=== PATIENT | male | born 1975 | race Caucasian/White ===

== ENCOUNTER → 2020-07-17 08:57 | Outpatient (CLI) | payer OTHER, SELFPAY ==
[2020-07-17 09:42] LABS: Absolute Lymphocyte Count 1.14 X10^3/uL (0.83-4.51); Absolute Neutrophil Count 2.6 X10^3/uL (2.0-7.7); Basophil# 0.03 X10^3/uL; Basophil% 0.7 % (0-1); Eosinophil# 0.06 X10^3/uL; Eosinophils% 1.4 % (0-5); Hemoglobin 16.2 g/dL (13.0-16.5); Lymphocyte # 1.14 X10^3/ul (4.0); Lymphocyte % 27.2 % (19-41); Mean Corp Hgb Conc 33.1 g/dL (32-36); Mean Corpuscular Hgb 28.3 pg (27.0-32.0); Mean Corpuscular Volume 85.5 fL (80-94); Monocyte# 0.39 X10^3/uL; Monocyte% 9.3 % (0-10); NRBC Flagged by Analyzer 0 % (0-5); Neutrophil # 2.56 X10^3/uL (2.7-7.7); Neutrophil % 61.2 % (47-70); Platelet Count 176 K/mm3 (150-450); RBC Distribution Width CV 13.1 % (11.6-14.6); RBC Distribution Width SD 40.4 fl (35.1-43.9); Red Blood Count 5.73 M/mm3 (4.6-6.2); White Blood Count 4.2 K/mm3 (4.4-11.0)
[2020-07-17 10:28] LABS: ALB/GLOB Ratio 1.1 RATIO (0.9-2.4); AST(SGOT) 17 U/L (15-37); Alanine Aminotransfer ALT/SGPT 33 U/L (16-61); Albumin, Serum 3.8 g/dL (3.2-5.0); Alkaline Phosphatase 64 U/L (45-117); Anion Gap 6 (5-15); BUN 19 mg/dL (7-18); BUN/Creat Ratio 20.3 RATIO (10-20); Calcium,Total 8.6 mg/dL (8.5-10.1); Chloride 107 mmol/L (98-107); Cholesterol 289 mg/dL (200); Creatinine, Serum 0.93 mg/dL (0.70-1.30); EST Glomerular Filtration Rate 93 mL/min (>60); Est Glom Filt Rate - Afr Amer 112 mL/min (>60); Globulin 3.4 g/dL (2.2-4.2); Glucose 90 mg/dL (74-106); High Density Lipoprotein 101 mg/dL; Potassium 3.7 mmol/L (3.5-5.1); Protein, Total 7.2 g/dL (6.4-8.2); Sodium Level 138 mmol/L (136-145); Thyroid Stim Hormone (TSH) 2.04 uIU/mL (0.358-3.74); Triglycerides 72 mg/dL; Very Low Density Lipoprotein 14 mg/dL (5-40)
== END ==
PROVIDERS: PCP Family Medicine; Referring Provider Family Medicine; Visit Provider Family Medicine
DX: Z00.8 Encounter for other general examination (principal)
CPT/HCPCS: 36415; 80053; 80061; 84443; 85025

== ENCOUNTER → 2024-07-04 | Outpatient (CLI) | payer BC, SELFPAY ==
--- NOTE | 2024-07-04 11:38 | US_ITS ---
STUDY: SUPERFICIAL ULTRASOUND - LEFT OCCIPITAL REGION REASON FOR EXAM: Male, 48 years old. soft tissue left occipital scalp TECHNIQUE: A superficial ultrasound was performed with real-time and static odell-scale imaging. COMPARISON: None. FINDINGS: 18 grayscale and color images of the scalp overlying the left occipital region and left neck junction were acquired. A tubular appearing focus is seen in the deep scalp subcutaneous tissues measuring 9 x 7 mm. This is likely a scalp vessel or lymphatic channel. No definite flow is seen in this tubular opacity. No discrete mass or cyst or fluid collection is seen. This can be further assessed by physical exam or dermatologic assessment but there are no specifics radiographically gone the provided study. If greater detailed imaging is required a CTA or MRI contrast can be performed. US/Head/Neck Soft Tissue IMPRESSION: 1. A tubular appearing focus is seen in the deep scalp subcutaneous tissues measuring 9 x 7 mm. This is likely a scalp vessel or lymphatic channel. Electronically Signed: Dominik Irby MD at 14:32 EST ,
== END | disposition home or self-care (01) ==
LOC: US 11:36
PROVIDERS: PCP Family Medicine; Referring Provider Surgery Plastic and Reconstructive Surgery; Visit Provider Surgery Plastic and Reconstructive Surgery
DX: R22.0 Localized swelling, mass and lump, head (principal)
CPT/HCPCS: 76536

== ENCOUNTER 2024-07-10 14:16 | Emergency (ER) | payer BC, SELFPAY ==
[2024-07-10 14:17] VITALS: BP 116/74; PULSE 70; RESP 20; TEMP 36.4; O2SAT 97; BMI 25.6
--- NOTE | 2024-07-10 15:23 | EX.ED.UPPERE ---
HPI <Dr. Malika Garcia DO - Last Filed: 07/21/24 14:35> History of Present Illness Chief Complaint: Laceration Informant: patient Narrative Narrative: Patient is a 48-year-old male [id number] not on any blood thinners presenting with injury to his left hand. Patient states he pulled on a ribbon of steel which was very sharp and it sliced his right third and fourth fingers. He does have some tingling at the fourth finger. It was bleeding. He thinks he saw the bone on his fourth finger. Still able to move his fingers. No other injuries reported. Tetanus Immunization: Unknown [facility] <Dr. Malika Garcia DO - Last Filed: 07/21/24 14:35> [facility] Medical History Lipoma Occipital headache Scalp mass Home Medications ?Medication ?Instructions ?Recorded ?Last Taken ?Type cephalexin 500 mg capsule 500 mg PO Q8H 5 days #15 caps 07/10/24 Unknown Rx Allergy/AdvReac Type Severity Reaction Status Date / Time No Known Drug Allergies Allergy Unknown Other Verified 06/17/24 13:57 Family History Other Diabetes Heart disease Myocardial infarction Surgical History No history of previous surgery Social History household members: spouse Smoking Status: Never smoker alcohol intake: never substance use type: does not use ROS <Dr. Malika Garcia DO - Last Filed: 07/21/24 14:35> ROS ED Constitutional Constitutional ED: Denies chills or fever(s) Musculoskeletal Musculoskeletal: Reports other Details: right hand pain Integumentary Reports other Details: laceration to right 4th and 3rd fingers Hematologic/Lymphatic Hematologic/Lymphatic: Denies easy bleeding or easy bruising EXAM <Dr. Malika Garcia DO - Last Filed: 07/21/24 14:35> Physical Exam Const Vital Signs: 07/10/24 14:17 Temperature 97.5 F L Temperature Source Temporal Pulse Rate 70 Respiratory Rate 20 H Blood Pressure 116/74 Blood Pressure Mean 88 Pulse Ox 97 Oxygen Delivery Method Room Air Positive well nourished and well developed General Appearance ED: well developed and NAD HEENT Reports moist mucous membranes Neck supple Resp normal respiratory effort Cardio regular rate and regular rhythm Cardio Narrative: 2+ radial pulses Extremity Extremity Narrative: Right wrist. Full-thickness laceration over the palmar aspect of the third and fourth right fingers at the level of the DIP/middle phalanges. No obvious tendons exposure. Preserved extension and flexion of all of the digits. No bony deformity appreciated. Neuro oriented x3, moves all extremities and no focal motor deficits Sensorium / Orientation: alert Psych mental status grossly normal Skin Skin Narrative: Of the third right finger there is a full-thickness linear 1.5 cm laceration at the level of the middle phalanges. On the right fourth finger there is 2 cm full-thickness linear laceration at the level of the middle phalanges [facility] <Dr. Malika Garcia DO - Last Filed: 07/21/24 14:35> [facility] Narrative Medical decision making narrative: Patient presents the emergency room with laceration to his right fourth and third fingers. X-ray does not show any acute foreign body or bony abnormalities. This reviewed by myself as well as radiology. Laceration repair performed by PA. Please see procedure note. Patient's does not appear to have any tendon involvement. Is given referral for hand/plastics for wound check and given return precautions. Patient will be placed on prophylactic dose of Keflex to help prevent any deep infection from the injury. Given return precautions discharged home in stable improved condition. Radiography Diagnostic Testing: Diagnostic Data Hand X-Ray 07/10/24 15:30 IMPRESSION: No acute osseous abnormalities are demonstrated. Reading Location: [facility] Procedures <ANUJA Olguin - Last Filed: 07/10/24 16:46> Lacerations right 3rd finger: Length: 0.59 in Depth: Sub Q Shape: Linear Prep: Sterile Conditions Laceration repair: Irrigated, Lidocaine, Local and Wound explored Irrigated (ml): 100 Number of Sutures/[place]: 5 Suture Information: Ethilon and 4-0 right 4th finger: Length: 0.79 in Depth: Sub Q Shape: Linear Prep: Sterile Conditions Laceration repair: Irrigated, Lidocaine, Local and Wound explored Irrigated (ml): 100 Number of Sutures/[place]ores: 6 Suture Information: Ethilon and 4-0 Comment: Right third finger has 1.5 cm linear laceration on the volar middle phalanx. Right fourth finger has 2 cm linear laceration at the volar middle phalanx. No visible tendon or bone. Discharge Plan Triage Chief Complaint: Laceration ED Provider: Malika Garcia Dx/Rx/DC Orders Clinical Impression: Laceration of finger, Need for Tdap vaccination Instructions: ED Laceration, Hand: All Closures Prescriptions: New cephalexin 500 mg capsule 500 mg PO Q8H 5 Days Qty: 15 0RF Primary Care Provider: Moises Ramos Referrals: Moises Ramos MD [Primary Care Provider] - Gino Thomas MD [Med Staff - Active Staff] - Activity Restrictions/Additional Instructions: Sutures should be removed in approximately 10 days. I do recommend follow-up with hand/plastic surgery for wound check this week and to ensure it is healing appropriately as well as that the function of your fingers is doing well. Take antibiotics to help prevent any secondary infection. Alternate ibuprofen and Tylenol as needed for pain. Print Language: Kiswahili Disposition Disposition: Home, Self Care Discharge Date/Time: 07/10/24 17:14
[2024-07-10] MEDS: Diphth,Pertuss(Acell),Tet Vac 0.5 ML Vial IM (15:28)
[2024-07-10] MEDS: Lidocaine 1% (20 ml mdv) 20 ML Vial INFILT (15:28)
--- NOTE | 2024-07-10 15:30 | RAD_ITS ---
PROCEDURE: HAND MIN 3 VIEWS REASON FOR EXAM: Laceration. TECHNIQUE: 3 view(s) of the right hand COMPARISON: None. FINDINGS: No visible fracture. No suspicious bone lesion. Normal alignment. Soft tissues are unremarkable. Subchondral cystic lesions involving the distal 3rd and 5th metacarpals. RAD/Hand Min 3 Views IMPRESSION: No acute osseous abnormalities are demonstrated. Reading Location: [facility]
== END 2024-07-10 17:14 | disposition home or self-care (01) ==
PROVIDERS: Emergency Provider Emergency Medicine; PCP Family Medicine; Visit Provider Emergency Medicine
DX: S61.212A Laceration without foreign body of right middle finger without damage to nail, initial encounter (principal); S61.214A Laceration without foreign body of right ring finger without damage to nail, initial encounter; W26.8XXA Contact with other sharp object(s), not elsewhere classified, initial encounter; Z23 Encounter for immunization
CPT/HCPCS: 12002; 73130; 90471; 90715; 99283

== ENCOUNTER → 2024-07-15 | Outpatient (CLI) | payer BC, SELFPAY ==
[2024-07-15 10:13] LABS: Absolute Lymphocyte Count 1.32 X10^3/uL (0.83-4.51); Absolute Neutrophil Count 3.7 X10^3/uL (2.0-7.7); Basophil# 0.02 X10^3/uL; Basophil% 0.4 % (0-1); Eosinophil# 0.06 X10^3/uL; Eosinophils% 1.1 % (0-5); Hematocrit 45.6 % (40-54); Hemoglobin 14.9 g/dL (13.0-16.5); Lymphocyte # 1.32 X10^3/ul (0.83-4.51); Lymphocyte % 23.3 % (19-41); Mean Corp Hgb Conc 32.7 g/dL (32-36); Mean Corpuscular Hgb 28.2 pg (27.0-32.0); Mean Corpuscular Volume 86.4 fL (80-94); Mean Platelet Vol. 9.7 fl (6.2-12.0); Monocyte# 0.57 X10^3/uL; Monocyte% 10.1 % (0-10); NRBC Flagged by Analyzer 0 % (0-5); Neutrophil # 3.67 X10^3/uL (2.7-7.7); Neutrophil % 64.7 % (47-70); Platelet Count 248 K/mm3 (150-450); RBC Distribution Width SD 40.3 fl (35.1-43.9); Red Blood Count 5.28 M/mm3 (4.6-6.2); White Blood Count 5.7 K/mm3 (4.4-11.0)
[2024-07-15 10:37] LABS: AST(SGOT) 22 U/L (15-37); Alanine Aminotransfer ALT/SGPT 34 U/L (16-61); Albumin, Serum 3.5 g/dL (3.2-5.0); Alkaline Phosphatase 63 U/L (45-117); Anion Gap 6 (5-15); BUN 26 mg/dL (7-18); BUN/Creat Ratio 27.9 RATIO (10-20); Calcium,Total 8.6 mg/dL (8.5-10.1); Chloride 103 mmol/L (98-107); Cholesterol 261 mg/dL (200); Creatinine, Serum 0.93 mg/dL (0.70-1.30); EST Glomerular Filtration Rate 91 mL/min (>60); Est Glom Filt Rate - Afr Amer 110 mL/min (>60); Globulin 3.4 g/dL (2.2-4.2); Glucose 106 mg/dL (74-106); High Density Lipoprotein 103 mg/dL; PSA,Total - Annual Screen 0.64 ng/mL (0.00-4.00); Potassium 4.1 mmol/L (3.5-5.1); Protein, Total 6.9 g/dL (6.4-8.2); Sodium Level 137 mmol/L (136-145); Triglycerides 55 mg/dL; Very Low Density Lipoprotein 11 mg/dL (5-40)
[2024-07-18 20:24] LABS: Hemoglobin A1c 5.7 % (3.8-5.6)
== END | disposition home or self-care (01) ==
LOC: MFPLAB 08:45
PROVIDERS: PCP Family Medicine; Referring Provider Family Medicine; Visit Provider Family Medicine
DX: Z12.5 Encounter for screening for malignant neoplasm of prostate (principal); R73.09 Other abnormal glucose; E78.00 Pure hypercholesterolemia, unspecified
CPT/HCPCS: 36415; 80053; 80061; 83036; 84153; 85025; G0103

== ENCOUNTER → 2024-11-03 | Outpatient (CLI) | payer BC, SELFPAY ==
--- NOTE | 2024-11-03 14:14 | US_ITS ---
PROCEDURE: HEAD/NECK SOFT TISSUE 11/03/2024 REASON FOR EXAM: 1) POSTERIOR OCCIPITAL MASS 2) POSTERIOR NECK MASS TECHNIQUE: Ultrasound imaging of Head and Neck COMPARISON: None FINDINGS: Left occipital area of palpable lump demonstrates predominantly hypoechoic ovoid structure measuring 0.9 x 1.2 x 1.2 cm likely a lymph node. Posterior neck palpable lump demonstrates predominantly fatty tissue without defined borders. US/Head/Neck Soft Tissue IMPRESSION: Left occipital area of palpable lump demonstrates predominantly hypoechoic ovoi d structure measuring 0.9 x 1.2 x 1.2 cm likely a lymph node. Posterior neck palpable lump demonstrates predominantly fatty tissue without de fined borders. Reading Location: [id number]
== END | disposition home or self-care (01) ==
LOC: US 14:13
PROVIDERS: PCP Family Medicine; Referring Provider Surgery Plastic and Reconstructive Surgery; Visit Provider Surgery Plastic and Reconstructive Surgery
DX: R22.0 Localized swelling, mass and lump, head (principal)
CPT/HCPCS: 76536

== ENCOUNTER 2025-04-14 07:28 | Day surgery (SDC) | payer BC, SELFPAY ==
--- OUTSIDE RECORDS SUMMARY | 2025-04-14 07:40 | XMS RPT_ITS | CCD ---
Author Organization [facility] CliniSy[facility] Care Team Providers Care Machine Sorter Name Role Phone SHERIE EAST Primary Care Unavailable Richard BURNS, Dr. Sherie Yañez Primary Care Provider Richard BURNS, Dr. Sherie Yañez Attending Provider Richard BURNS, Dr. Sherie Yañez Referring Provider Martha BURNS, Dr. Christian Attending Provider Martha BURNS, Dr. Christian Referring Provider [phone] Malika Garcia Attending Unavailable Richard, Sherie E Primary Care Unavailable SchSherie perera Attending Unavailable Schpaulner, Sherie Otilio Referring Unavailable Schinner, Sherie E Primary Care Unavailable Schdilma, Sherie E Primary Care Unavailable Schdilma, Sherie Yañez Referring Unavailable Gino Thomas Attending Unavailable Richard, Sherie E Referring Unavailable Schinner, Sherie E Primary Care Unavailable Gino Thomas Attending Unavailable Marilin Coombs Attending Unavailable Schinner, Sherie E Primary Care Unavailable Schinner, Sherie E Referring Unavailable Schinner, Sherie E Primary Care Unavailable Evan Horn Attending Unavailable Richard, Sherie E Primary Care Unavailable Gnio Thomas Attending Unavailable Gino Thomas Referring Unavailable Schinyvon, Sherie E Primary Care Unavailable Gino Thomas Attending Unavailable Gino Thomas Referring Unavailable SchinnerSherie Attending Unavailable Richard, Sherie E Primary Care Unavailable Richard, Sherie E Primary Care Unavailable Gino Thomas Referring Unavailable Gino Thomas Attending Unavailable Richard, Sherie E Referring Unavailable Schpaulner, Sherie E Primary Care Unavailable Gino Thomas Attending Unavailable Medications Completed/Discontinued Medications Medication Drug Class(es) Dates Sig (Normalized) Sig (Original) cephalexin 500 mg oral capsule (2 sources) Cephalosporin Antibacterial Start: 07-10-2024 End: 11-11-2024 take 1 capsule by mouth every eight hours Cephalexin 500 mg capsule Discontinued 500 mg PO Q8H 15 5 July 10, 2024 1:00am November 11, 2024 9:09am Problems Active Problems Problem Classification Problem Date Documented Da te Episodic/Chronic Headache; including migraine (2 sources) Occipital headache; Translations: [Occipital headache] 07-18-2022 Episodic Immunizations and screening for infectious disease (2 sources) Requires diphtheria, tetanus and pertussis vaccination; Translations: [Encounter for immunization] 07-18-2024 Episodic Other and unspecified benign neoplasm (2 sources) Lipoma (clinical); Translations: [Benign lipomatous neoplasm, unspecified] 06-17-2024 Episodic Other skin disorders (4 sources) Mass of scalp; Translations: [Localized swelling, mass and lump, head] 07-18-2022 Episodic Comment on above: 2 cm soft tissue mas s left occipital scalp Other skin disorders (4 sources) Mass of body structure 06-17-2024 Episodic Comment on above: Posterior neck Unclassified (2 sources) No history of procedure 07-17-2022 Past or Other Problems Problem Classification Problem Date Documented Da te Episodic/Chronic Diabetes mellitus without complication (1 source) Impaired glucose tolerance (oral); Translations: [Impaired glucose tolerance (oral)] Onset: 11-11-2024 Episodic Open wounds of extremities (3 sources) Laceration of finger; Translations: [Laceration without foreign body of unspecified finger without damage to nail, initial encounter] Onset: 07-26-2024 07-18-2024 Episodic Other and unspecified benign neoplasm (1 source) Benign lipomatous neoplasm, unspecified; Translations: [Benign lipomatous neoplasm, unspecified] Onset: 05-12-2024 Episodic Other screening for suspected conditions (not mental disorders or infectious disease) (1 source) Encounter for screening for malignant neoplasm of prostate; Translations: [Encounter for screening for malignant neoplasm of prostate] Onset: 08-02-2024 Episodic Other skin disorders (1 source) Localized swelling, mass and lump, head; Translations: [Localized swelling, mass and lump, head] Onset: 11-08-2024 Episodic Spondylosis; intervertebral disc disorders; other back problems (2 sources) Cervicalgia; Translations: [Radiculopathy, cervical region] Onset: 05-12-2024 Episodic Results Test Name Value Interpretation Reference Range Facility Plastic Surgery Visit Report on 11-11-2024 Plastic Surgery Visit Report [facility] Plastic Reconstructive Surgery [address], [address] [place], [place] [address] OFFICE VISIT Date of Service: 11/11/24 MR#: [id number] Acct: [id number] Name: MISSAEL BARRETT Rep #: [id number] : 1975 Provider: Dr. Gino Thomas MD Age/Sex: 48/M Location: [facility] Status: Signed Intake Vital Signs 3 10/28/24 14:05 11/11/24 09:09 Height 5 ft 8 in BP 107/68 120/82 H Blood Pressure Location Lt brachial Rt brachial Position Sitting Sitting Respiration 18 18 Pulse 64 61 Pulse Source Monitor Temp 97.8 F Temp Source Temporal Pulse Oximetry (%) 97 98 Oxygen Delivery Method room air room air Intake Visit Reasons: ULTRASOUND RESULTS Chief Complaint: lipoma of back follow up ultrasound Is patient in pain?: No Allergies No Known Drug Allergies Allergy (Unknown, Verified 11/11/24 09:09) Other [facility] Medical History Lipoma Occipital headache Scalp mass Surgical History No history of previous surgery Family History Other Diabetes Heart disease Myocardial infarction Social History household members: spouse Smoking Status: Never smoker alcohol intake: never substance use type: does not use HPI ULTRASOUND RESULTS Details: Missael Barrett is a delightful 48-year-old male with past medical history of headaches who was referred to plastic surgery by orthopedic surgery for neck lipoma after he was being evaluated by their spine surgery team for possible neck pathology leading to the headaches. He reports that their x-rays were negative for any acute pathology. He reports that the masses (2 lipomas 1 on the left posterior scalp and 1 on the posterior lower neck in the midline) have been there for several years and were not present at but it been slowly growing over the years. He is not a smoker 28 Oct 2024: Patient got ultrasound but there was no read on the cervical spine mass. I discussed this with radiology and they will repeat the ultrasound for the scalp and for the cervical spine. Discussed with the patient CURRENT ENCOUNTER, 11 November 2024: Here in clinic to review ultrasound. Left posterior scalp mass consistent with a lymph node, while the posterior cervical spine ultrasound revealed fatty tissue that was not well-circumscribed. Exam Details Left posterior occipital subcutaneous mass, approximately 2 x 2 cm, likely under the galea. Mobile Posterior occipital bossing, patient reports present since childhood Posterior neck soft tissue prominence approximately 4 x 4 cm over the lower C-spine midline over a projecting spinous process. Mobile, nontender to palpation. No neck lymphadenopathy Coding Level of Care Code Off vis,est,level 3 Diagnoses Mass Scalp mass R22.0 Assessment and Plan (No Qualifiers) Assessment and Plan (1) Mass: Status: Acute Comment: Posterior neck (2) Scalp mass: Status: Chronic Comment: 2 cm soft tissue mass left occipital scalp Plan I talked to the patient about the padding identified in the ultrasound over his cervical spine spinous process. He then talked to me about weight lifting and how this area may have extra padding secondary to his use of the bar. There was no identifiable circumscribed mass in this location and removing the fatty tissue from this region may cause a wound over the spinous process. He is in agreement with no surgical intervention for this area. For the left occipital scalp mass, we talked about removal in the operating room. I talked him about how it is likely benign but that there are no guarantees and I would send the pathology. He would like to proceed with excision. I talked to the patient extensively about the risks of surgery, including bleeding, infection, damage to surrounding structures, poor scaring, surgical site dehiscence and wound formation, need for wound care, need for repeat operations, failure to obtain the desired result, DVT/PE, and the risks of anesthesia including , including stroke (from low blood pressure/ischemia or clot). The benefits and alternatives of this surgery were also discussed. All of their questions were answered, and they agreed to proceed with surgery. CPT codes for insurance prior authorization are as follows: 57237, 25792 11/12/241945 Date Gino Thomas MD Cosigner Signature: Date (if applicable) CC: Normal [facility] Head/Neck Soft Tissueon 05- Head/Neck Soft Tissue [facility] Imaging Services [address] [place], [place] [address] Head/Neck Soft Tissue MR#: [id number] Acct: [id number] Name: MISSAEL BARRETT Rep #: [id number] : 1975 M 48 From: Eddie Franklin PCP: Dr. Sherie East MD Status: [facility] Study: Head/Neck Soft Tissue Date of Exam: 11/03/24 Exam# [id number] Ordering Dr: Gino Thomas MD PROCEDURE: HEAD/NECK SOFT TISSUE 11/03/2024 REASON FOR EXAM: 1) POSTERIOR OCCIPITAL MASS 2) POSTERIOR NECK MASS TECHNIQUE: Ultrasound imaging of Head and Neck COMPARISON: None FINDINGS: Left occipital area of palpable lump demonstrates predominantly hypoechoic ovoid structure measuring 0.9 x 1.2 x 1.2 cm likely a lymph node. Posterior neck palpable lump demonstrates predominantly fatty tissue without defined borders. US/Head/Neck Soft Tissue IMPRESSION: Left occipital area of palpable lump demonstrates predominantly hypoechoic ovoid structure measuring 0.9 x 1.2 x 1.2 cm likely a lymph node. Posterior neck palpable lump demonstrates predominantly fatty tissue without defined borders. Reading Location: [facility] CC: Dr. Sherie East MD; Dr. Gino Thomas MD Student Life Dean: Signed Normal [facility] Plastic Surgery Visit Report on 10-28-2024 Plastic Surgery Visit Report [facility] Plastic Reconstructive Surgery [address], [address] [place] [address] OFFICE VISIT Date of Service: 10/28/24 MR#: [id number] Acct: [id number] Name: MISSAEL BARRETT Rep #: [id number] : 1975 Provider: Dr. Gino Thomas MD Age/Sex: 48/M Location: [facility] Status: Signed Intake Vital Signs 3 07/10/24 14:17 10/28/24 14:05 Height 5 ft 8 in 5 ft 8 in BP 107/68 Blood Pressure Location Lt brachial Position Sitting Respiration 18 Pulse 64 Temp 97.8 F Temp Source Temporal Pulse Oximetry (%) 97 Oxygen Delivery Method room air Intake Visit Reasons: f/u ultrasound Chief Complaint: lipoma of back follow up ultrasound Is patient in pain?: No Allergies No Known Drug Allergies Allergy (Unknown, Verified 10/28/24 14:06) Other Medications 3 ???Medication ???Instructions ???Recorded ???Confirmed ???Type cephalexin 500 mg capsule 500 mg PO Q8H 5 days #15 caps 08/02 Rx Nurse's Note: pt here for follow up ultrasound [facility] Medical History Lipoma Occipital headache Scalp mass Surgical History No history of previous surgery Family History Other Diabetes Heart disease Myocardial infarction Social History household members: spouse Smoking Status: Never smoker alcohol intake: never substance use type: does not use HPI f/u ultrasound Details: Missael Barrett is a delightful 48-year-old male with past medical history of headaches who was referred to plastic surgery by orthopedic surgery for neck lipoma after he was being evaluated by their spine surgery team for possible neck pathology leading to the headaches. He reports that their x-rays were negative for any acute pathology. He reports that the masses (2 lipomas 1 on the left posterior scalp and 1 on the posterior lower neck in the midline) have been there for several years and were not present at but it been slowly growing over the years. He is not a smoker Current encounter, 28 Oct 2024: Patient got ultrasound but there was no read on the cervical spine mass. I discussed this with radiology and they will repeat the ultrasound for the scalp and for the cervical spine. Discussed with the patient Exam Details Left posterior occipital subcutaneous mass, approximately 2 x 2 cm, likely under the galea. Mobile Posterior occipital bossing, patient reports present since childhood Posterior neck soft tissue mass approximately 4 x 4 cm over the lower C-spine midline. Mobile, nontender to palpation. No neck lymphadenopathy Coding Level of Care Code No Charge Diagnoses Mass Scalp mass R22.0 Assessment and Plan (No Qualifiers) Assessment and Plan (1) Mass: Status: Acute Comment: Posterior neck (2) Scalp mass: Status: Chronic Comment: 2 cm soft tissue mass left occipital scalp Plan Given that the mass is in the midline, I am obtaining ultrasound imaging. I will also get ultrasound of the left posterior scalp mass. Discussed with radiology and they are going to repeat the ultrasound of both spots free of charge. Follow-up to discuss ultrasound result. Patient will return to clinic following the ultrasound and we will discuss results Today's visit was no charge 10/29/24 09 Date Gino Thomas MD Cosigner Signature: Date (if applicable) CC: Normal [facility] C URINEon 09-19-2024 C URINE [facility] Dept of Laboratory Services [address] [place] [id number] Name: MISSAEL BARRETT : 1975 Admitting Provider: Gender Male Financial [id number] : Number: Dimple ZUÑIGA; EX02; 1 n: Admit 09/18/2024 Date: Discharge 09/18/2024 Microbiology Date: PROCEDURE: C URINE [] SOURCE: CLEAN CATCH BODY SITE: COLLECTED DATE/TIME: 09/18/2024 13:20 EDT RECEIVED DATE/TIME: 09/18/2024 14:06 EDT START DATE/TIME: 09/18/2024 14:06 EDT FREE TEXT SOURCE: ORDERING PHYSICIAN: RAJ BURNS, THUAN Blanchard FINAL REPORTS Final Report [] Verified Date/Time: 09/19/2024 07:34 EDT No growth after 24 hours. ____ L=Low, H= High, *= Abnormal, C=Critical, f=Footnote, c=Corrected, i=Interp Data Name: MISSAEL BARRETT Print 09/19/2024 07:34 EDT Date/Time: Normal [facility] Comment on above: Performed By: #### 1 [id number] #### [facility] Laboratory Services [address] [place] [address] Solid Center Winder: Sajan Karimi MD ALCOHOLon 09-18-2024 Ethanol [Mass/Vol] mg/dL Normal [facility] Comment on above: Result Comment: Note : Alcohol values performed at [facility] are performed on serum or plasma and reported in mg/dl, which is different then the state reporting units of g/dl which is performed on whole blood. Result reporting units are based on test methodology and are not interchangable. Performed By: #### 1 71147 #### [facility] Laboratory Services [address] [place] [address] Solid [facility] Winder: Sajan Karimi MD APTTon 09-18-2024 aPTT Coag (Bld) [Time] 31.3 s Normal 26.0-36.0 So [facility] Comment on above: Result Comment: APTT Interpretation: This test has not been validated to monitor heparin therapy. APTT test is used as an initial test for suspected bleeding disorder. Anti-Xa UFH test is used to monitor heparin therapy. Performed By: #### 1 88860, 044912, [id number], 830099, [id number], 526345, 582973 #### [facility] Laboratory Services [address] [place], [place] [address] Solid Center Winder: Sajan Karimi MD AUTO DIFFon 09-18-2024 Baso Count 0.03 x1000 Normal 0.00-0.20 [facility] Comment on above: Performed By: #### 1 71372, 181762, [id number], 595624, 5630655, 607430, 392190 #### [facility] Laboratory Services [address] [place], [place] [address] Solid Center Winder: Sajan Karimi MD Basos % 0.5 % Normal [facility] Comment on above: Performed By: #### 1 38893, 982715, [id number], 472514, 8610851, 948592, 935297 #### [facility] Laboratory Services [address] [place], [place] [address] Solid Center Winder: Sajan Karimi MD Eos Count 0.02 x1000 Normal 0.00-0.50 [facility] Comment on above: Performed By: #### 1 13544, 349982, [id number], 928548, 7259343, 656217, 070815 #### [facility] Laboratory Services [address] [place], [place] [address] Solid Center Winder: Sajan Karimi MD Eosinophils/100 WBC (Bld) 0.3 % Normal [facility] Comment on above: Performed By: #### 1 57610, 620207, [id number], 346777, 2716376, 855344, 627577 #### [facility] Laboratory Services [address] [place] [address] [facility] Winder: Sajan Karimi MD Lymph Count 0.90 x1000 Low 1.20-4.80 [facility] Comment on above: Performed By: #### 1 66171, 282134, [id number], 915355, 0181657, 555699, 407290 #### [facility] Laboratory Services [address] [place] [address] Solid [facility] Winder: Sajan Karimi MD Lymphocytes/100 WBC (Bld) 15.1 % Normal [facility] Comment on above: Performed By: #### 1 11711, 480670, [id number], 810505, 0686724, 823850, 796190 #### [facility] Laboratory Services [address] [place] [address] Solid [facility] Winder: Sajan Karimi MD [place] Count 0.38 x1000 Normal 0.10-1.00 [facility] Comment on above: Performed By: #### 1 21191, 228575, [id number], 362449, 0271971, 663701, 034030 #### [facility] Laboratory Services [address] [place] [address] [facility] Winder: Sajan Karimi MD Monocytes/100 WBC (Bld) 6.3 % Normal [facility] Comment on above: Performed By: #### 1 24713, 519046, [id number], 735860, 1119217, 260049, 233555 #### [facility] Laboratory Services [address] [place] [address] Solid [facility] Winder: Sajan Karimi MD Neutrophil Count (ANC) 4.64 x1000 Normal 1.40-8.80 [facility] Comment on above: Performed By: #### 1 17526, 340829, [id number], 668699, 9622940, 818462, 950849 #### [facility] Laboratory Services [address] [place] [address] [facility] Winder: Sajan Karimi MD Neutrophils/100 WBC (Bld) 77.8 % Normal [facility] Comment on above: Performed By: #### 1 64137, 949990, [id number], 943218, 4528049, 007119, 056003 #### [facility] [address] [place] [address] Solid Center Winder: Sajan Karimi MD COMPMETAon 09-18-2024 Albumin [Mass/Vol] 3.6 g/dL Normal 3.4-5.0 [facility] Comment on above: Performed By: #### 1 48090 #### [facility] Laboratory Services [address] [place] [address] Solid [facility] Winder: Sajan Karimi MD Albumin/Globulin [Mass ratio] 1.0 {ratio} Normal [facility] Comment on above: Performed By: #### 1 04979 #### [facility] Laboratory Services [address] [place] [address] [facility] Winder: Sajan Karimi MD Alk Phos 73 unit/L Normal 45-117 [facility] Comment on above: Performed By: #### 1 06429 #### [facility] Laboratory Services [address] [place] [address] [facility] Winder: Sajan Karimi MD Bilirubin [Mass/Vol] 0.60 mg/dL Normal 0.30-1.20 [facility] Comment on above: Result Comment: Use of this assay is not recommended for patients undergoing treatment with eltrombopag due to the potential for falsely elevated results. Performed By: #### 1 61780 #### [facility] Laboratory Services [address] [place] [address] [facility] Winder: Sajan Karimi MD Calcium [Mass/Vol] 9.4 mg/dL Normal 8.7-10.4 [facility] Comment on above: Performed By: #### 1 48169 #### [facility] Laboratory Services [address] [place] [address] Solid [facility] Winder: Sajan Karimi MD Chloride [Moles/Vol] 105 mmol/L Normal 98-107 [facility] Comment on above: Performed By: #### 1 96337 #### [facility] Laboratory Services [address] [place] [address] [facility] Winder: Sajan Karimi MD CO2 [Moles/Vol] 26.0 mmol/L Normal 20.0-31.0 [facility] Comment on above: Performed By: #### 1 74604 #### [facility] Laboratory Services [address] [place] [address] [facility] Winder: Sajan Karimi MD Creatinine [Mass/Vol] 1.3 mg/dL High 0.6-1.1 [facility] Comment on above: Performed By: #### 1 19068 #### [facility] Laboratory Services [address] [place] [address] [facility] Winder: Sajan Karimi MD GFR AA >60 [facility] Comment on above: Result Comment: Afri can [place]gas[place] GFR Calc Medical judgement is necessary to interpret GFR. The calculated GFR may not accurately reflect renal status in patients >70 years, women, acutely ill hospitalized patients and patients with acute renal failure or known renal disease. The MDRD GFR formula is valid only for adults greater than 18 years of age. Note: Creatinine clearance (not GFR) should be used for drug dosing. Performed By: #### 1 70279 #### [facility] Laboratory [address] [address] Solid Center Winder: Sajan Karimi MD Globulin (S) [Mass/Vol] 3.6 g/dL Normal [facility] Comment on above: Performed By: #### 1 33227 #### [facility] Laboratory Services [address] [place] [address] [facility] Winder: Sajan Karimi MD Glomerular Filtration Rate 58 mL/min/1.73m? Normal [facility] Comment on above: Result Comment: Non- GFR Calc Medical judgement is necessary to interpret GFR. The calculated GFR may not accurately reflect renal status in patients >70 years, women, acutely ill hospitalized patients and patients with acute renal failure or known renal disease. The MDRD GFR formula is valid only for adults greater than 18 years of age. Note: Creatinine clearance (not GFR) should be used for drug dosing. Performed By: #### 1 15481 #### [facility] Laboratory Services [address] [place] [address] Solid [facility] Winder: Sajan Karimi MD Glucose [Mass/Vol] 94 mg/dL Normal 74-106 [facility] Comment on above: Performed By: #### 1 38276 #### [facility] Laboratory Services [address] [place] [address] [facility] Winder: Sajan Karimi MD GOT 27 unit/L Normal 15-37 [facility] Comment on above: Performed By: #### 1 20774 #### [facility] Laboratory Services [address] [place] [address] [facility] Winder: Sajan Karimi MD GPT 25 unit/L Normal 10-49 [facility] Comment on above: Performed By: #### 1 96643 #### [facility] Laboratory Services [address] [place] [address] [facility] Winder: Sajan Karimi MD Osmolality [Osmolality] 287 mosm/kg Normal 275-295 [facility] Comment on above: Performed By: #### 1 35490 #### [facility] Laboratory Services [address] [place] [address] [facility] Winder: Sajan Karimi MD Potassium [Moles/Vol] 4.3 mmol/L Normal 3.5-5.1 [facility] Comment on above: Performed By: #### 1 07429 #### [facility] Laboratory Services [address] [place] [address] [facility] Winder: Sajan Karimi MD Protein [Mass/Vol] 7.1 g/dL Normal 5.7-8.2 [facility] Comment on above: Result Comment: Tota l Protein results may be increased in patients receiving dextran as a blood volume hydraulic jack operator Performed By: #### 1 05241 #### [facility] Laboratory Services [address] [place] [address] [facility] Winder: Sajan Karimi MD Sodium [Moles/Vol] 140 mmol/L Normal 135-145 [facility] Comment on above: Performed By: #### 1 32477 #### [facility] Laboratory Services [address] [place], [place] [id number] [facility]: Sajan Karimi MD Urea nitrogen [Mass/Vol] 34 mg/dL High 9-23 [facility] Comment on above: Result Comment: - Ve nipuncture should occur prior to N-Acetyl Cysteine (NAC) or Metamizole (Sulpyrine) administration due to the potential for falsely depressed results. - Blood samples from some patients with monoclonal gammopathies may produce falsely elevated results Performed By: #### 1 [id number] #### [facility] [address] [id number] [facility]: Sajan Karimi MD Urea nitrogen/Creatinine [Mass ratio] 26.2 mg/mg Normal [facility] Comment on above: Performed By: #### 1 25678 #### [facility] [address] [id number] [facility]: Sajan Karimi MD ED Physician Reporton 2024 ED Physician Report MISSAEL BARRETT :1975 Registration Date:09/18/2024 Basic Information Time Seen: _1117, immediately upon arrival Arrival Mode: Ambulance _ History Source: Patient EMS _ _ History limitation: None _ History of Present Illness Patient denies any significant medical history. Patient was at the airport. Waiting for flight. States he was squatting against a wall. He had been there for a while. When he got up he got lightheaded and passed out. He fell forward and sustained a laceration to his left eye. He denies any recent illness. He denies any chest pain or shortness of breath. No strokelike symptoms. Denies any previous history of syncopal episodes. No seizure activity. Reporting pain at the site of his laceration. He denies any neck back chest abdomen hip or extremity pain. EMS was called. They report his vital signs were stable. His blood sugar was good. He was transferred to the ER for treatment and evaluation. He reports he is up-to-date on his tetanus. Review of Systems Constitutional symptoms: Negative except as documented in HPI. Skin symptoms: Negative except as documented in HPI. Eye symptoms: Negative except as documented in HPI. ENMT symptoms: Negative except as documented in HPI. Respiratory symptoms: Negative except as documented in HPI. Cardiovascular symptoms: Negative except as documented in HPI. Gastrointestinal symptoms: Negative except as documented in HPI. Genitourinary symptoms: Negative except as documented in HPI. Musculoskeletal symptoms: Negative except as documented in HPI. Psychiatric symptoms: Negative except as documented in HPI. Neurologic symptoms: Negative except as documented in HPI. Additional review of systems information: All other systems reviewed and otherwise negative, Systems negative except as stated in the H&P. Physical Exam Vitals & Measurements Initial: HR: 76 (Monitored) BP: 121/77 RR: 13 SpO2: 98% O2 Therapy: Room air Latest: HR: 69 (Peripheral) HR: 70 (Monitored) BP: 117/75 RR: 14 SpO2: 99% O2 Therapy: Room air Vital Signs: Per nurse's notes. General: Alert Skin: Warm, dry, no rash. Head: Normocephalic, left eye laceration. Neck: Supple, trachea midline, no tenderness. Eye: Pupils are equal, round and reactive to light, extraocular movements are intact, normal conjunctiva. Ears, nose, mouth and throat: Tympanic membranes clear, oral mucosa moist. Cardiovascular: Regular rate and rhythm, no murmur. Respiratory: Lungs are clear to auscultation, respirations are non-labored, breath sounds are equal. Chest wall: No tenderness, no deformity. Back: Nontender, normal range of motion, normal alignment. Musculoskeletal: Normal ROM, normal strength, no tenderness, no swelling, no deformity. Gastrointestinal: Soft, nontender, non distended, normal bowel sounds. Lymphatics: No lymphadenopathy. Psychiatric: Cooperative, appropriate mood & affect. Neurological: Alert and oriented to person, place, time, and situation, no focal neurological deficit observed. Procedure CARDIAC MONITORING Time: _1130 Rate: _75 Rhythm: normal sinus rhythm _ Performed by: self Medical Decision Making MDM Data Differential diagnosis: syncope, vasovagal episode, dysrhythmia, hypotension, dizziness, seizure, CVA, orthostatic hypotension Documents reviewed: ED nursing notes__patient has no records in her system and no external records to review Decision rules/scores evaluated: MDM Testing Review All laboratory, radiology, and any additional testing /evaluations ordered by me and resulted during this encounter were reviewed by me. Relevant results have been considered in medical decision making. MDM Treatment ED course: CMP with creatinine of 1.3. No previous creatinines to compare to. Alcohol negative. White count 6.0. Hemoglobin 15.6. Chest x-ray with no acute cardiopulmonary process. Urinalysis unremarkable. Urine tox screen negative. Patient declined head CT. Patient with syncopal episode today. Given IV fluids. Laceration was repaired. Monitored in ER. Patient reports he feels fine. Discussed and recommended overnight observation for syncopal episode. Patient declines. He wishes to go home. Risk clearly explained. Patient competent to make this decision. He is advised to follow-up as directed. Advised may return to the ER at anytime for any problems or concerns. MDM Disposition Discussion: Today's findings discussed including details regarding diagnosis, plan of care, and prognosis. Counseling provided and all questions answered. In agreement with discharge. Disposition: Discharged to follow up as directed. Return for any problems or concerns. MIPS: #[id number] - Emergency Medicine: Utilization of CT for Minor Blunt Head Trauma (Adult) Xxx patient has one or more of the following conditions that are excluded from the measure (select all that apply): Patient has ventricular shunt Patie (more content not included)... Normal [facility] ED Physician Report MISSAEL BARRETT :1975 Registration Date:09/18/2024 Procedure LACERATION REPAIR Time: [1225] Patient/procedure site confirmed correct. Time out taken. Consent from: patient [] Consent form: verbal [] Location: [left eyebrow] Shape: linear [] Length: [approximatey 1cm] Depth: superficial [] Details: clean [] Vascular exam: circulation intact [] Sensory exam: sensory intact [] Motor exam: intact [] Anesthesia type: LET [] Anesthesia location: local [] Preparation: sterile field betadine [] Irrigation type: sterile water [] Closure type: sutures [] Complexity: single layer [] Closure technique: interrupted [] Suture type: prolene [] Suture total: [2] Complications: [None] Patient tolerated: well [] Post procedure exam: [Circulation, motor, sensory intact and bleeding controlled] Performed by: [self] Total time: [approximately 15 minutes] NOTE This MATTHIAS performed this procedure only and did not otherwise participate in the care of this patient. Electronically Co-Signed by: THUAN ANTHONY MD on 09/18/2024 19:14 Normal [facility] HEMOon 09-18-2024 DIFF? No Normal [facility] Comment on above: Performed By: #### 1 41583, 100552, [id number], 430863, 2769717, 581595, 078524 #### [facility] [address] [place], [place] [phone] [facility]: Sajan Karimi MD Erythrocyte distribution width (RBC) [Ratio] 13.6 % Normal 11.5-14.5 [facility] Comment on above: Performed By: #### 1 50394, 333178, [id number], 645332, 9758877, 536892, 724390 #### [facility] [address] [place], [place] [id number] [facility]: Sajan Karimi MD Hematocrit (Bld) [Volume fraction] 46.3 % Normal 41.0-52.0 [facility] Comment on above: Performed By: #### 1 24352, 778098, [id number], 951932, 6366783, 669388, 572745 #### [facility] [address] [place] [address] [facility]: Sajan Karimi MD Hemoglobin (Bld) [Mass/Vol] 15.6 g/dL Normal 13.5-17.5 [facility] Comment on above: Performed By: #### 1 44027, 910832, [id number], 514134, 0164050, 799022, 388903 #### [facility] [address] [place] [address] [facility]: Sajan Karimi MD Instr WBC 6.0 Normal [facility] Comment on above: Performed By: #### 1 85329, 322361, [id number], 094011, 9899510, 125795, 332892 #### [facility] [address] [place] [address] [facility]: Sajan Karimi MD MCH (RBC) [Entitic mass] 28.6 pg Normal 27.0-34.0 [facility] Comment on above: Performed By: #### 1 36595, 245160, [id number], 657922, 6293639, 945555, 205483 #### [facility] [address] [place] [address] [facility]: Sajan Karimi MD MCHC (RBC) [Mass/Vol] 33.7 g/dL Normal 32.0-37.0 [facility] Comment on above: Performed By: #### 1 79939, 068341, [id number], 908723, 6043284, 472022, 599262 #### [facility] [address] [place] [address] [facility]: Sajan Karimi MD MCV (RBC) [Entitic vol] 85.1 fL Normal 80.0-100.0 [facility] Comment on above: Performed By: #### 1 02452, 826476, [id number], 541772, 6874972, 803860, 078538 #### [facility] [address] [place] [address] [facility]: Sajan Karimi MD MDW 17.55 Normal 13.98-20.00 [facility] Comment on above: Result Comment: MDW Interpretation: - For adults age 18-89 in ED, MDW >20.0 may be associated with a higher risk of Sepsis during the first 12 hours of hospital admission. - The predictive value of MDW for identifying Sepsis in patients with hematological abnormalities has not been established. - Interpret with caution when immature granulocytes, variant lymphs, or blast cells are noted on the differential. - Confirm patient age is within intended use population (18-89 years) for MDW. - For ED adults suspected of Sepsis, MDW less than or equal to 20.0 does not rule out Sepsis or the risk of Sepsis. Performed By: #### 1 05158, 683129, [id number], 938531, 5595452, 144373, 319280 #### [facility] [address] [place] [address] [facility]: Sajan Karimi MD Nucleated RBC 0 /100WBC Normal [facility] Comment on above: Performed By: #### 1 80054, 314802, [id number], 808792, 3877608, 738943, 388356 #### [facility] [address] [place] [address] [facility]: Sajan Karimi MD Platelet 306 x10 Normal 150-450 [facility] Comment on above: Performed By: #### 1 62090, 827179, [id number], 278315, 5944914, 040910, 433110 #### [facility] [address] [place] [address] [facility]: Sajan Karimi MD Platelet mean volume (Bld) [Entitic vol] 7.5 fL Normal 7.4-10.4 [facility] Comment on above: Performed By: #### 1 84924, 510402, [id number], 111172, 2286940, 541003, 793935 #### [facility] [address] [place] [address] [facility]: Sajan Karimi MD RBC 5.44 x10 Normal 4.70-6.10 [facility] Comment on above: Result Comment: Note : RBC morphology is normal unless otherwise stated. Evaluation performed only if differential is requested. Performed By: #### 1 23166, 274012, [id number], 379707, 7230340, 608956, 284892 #### [facility] [id number] [place] [address] [facility]: Sajan Karimi MD WBC 6.0 x10 Normal 4.5-11.0 [facility] Comment on above: Performed By: #### 1 39762, 048512, [id number], 997551, 9454664, 698841, 762884 #### [facility] [address] [place] [address] [facility]: Sajan Karimi MD POC Glucoseon 09-18-2024 Glucose [Mass/Vol] 94 mg/dL Normal 72-100 [facility] Comment on above: Performed By: #### 1 [id number] #### [facility] [address] [place] [address] [facility]: Sajan Karimi MD PT INRon 09-18-2024 INR Coag (PPP) [Relative time] 1.0 {INR} Normal [facility] Comment on above: Result Comment: INR Reference Range: Normal reference range for INR on patients not on anticoagulant therapy: 0.9-1.1 General therapeutic range for patients on anticoagulant therapy: 2.0-3.5 Performed By: #### 1 54196, 587679, [id number], 479333, 3455698, 257346, 611364 #### [facility] [address] [place] [address] [facility]: Sajan Karimi MD Protime Patient 11.1 seconds Normal 9.8-12.4 [facility] Comment on above: Performed By: #### 1 06672, 827253, [id number], 305531, 8140358, 206901, 805911 #### [facility] [address] [place] [address] [facility]: Sajan Karimi MD TROPONIN HS 0HRon 09-18-2024 Troponin HS 0 Hr 3 pg/mL Normal 3-53 [facility] Comment on above: Result Comment: Spec imens from some individuals with pathologically high gamma globulin levels may demonstrate depressed troponin values Performed By: #### 1 46743 #### [facility] [address] [place] [address] [facility]: Sajan Karimi MD U DOA WITH FENTANYLon 2024 Amphetamines, U Negative Normal [facility] Comment on above: Result Comment: Urin e for Drugs of Abuse tests (U Amphetamines, U Barbiturates, U PCP, U Benzodiazepines, U Cocaine, U THC, U Opiates & U Ecstasy)provide preliminary test results only. A more specific alternate method must be used in order to obtain a confirmed analytical result. Gas chromatography/mass spectrometry is the preferred confirmatory method. Clinical consideration and professional judgment should be applied to any drug of abuse test result, particularly when preliminary positive results are used. Results should not be used for non-medical purposes. Urine for Drugs of Abuse Minerva Levels: Barbiturate 200 ng/ml PCP 25 ng/ml Cocaine 300 ng/ml Opiates 2000 ng/ml Amphetamines 1000 ng/ml Benzodiazepines 200 ng/ml THC 50 ng/ml EXTC 500 ng/ml Performed By: #### 7 [id number] #### [facility] [address] [place] [address] [facility]: Sajan Karimi MD Barbituates, U Negative [facility] Comment on above: Performed By: #### 7 [id number] #### [facility] [address] [place] [address] [facility]: Sajan Karimi MD Benzodiazepines, U Negative Normal [facility] Comment on above: Result Comment: - A positive result from the assay indicates the presence of benzodiazepines but does not indicate or measure intoxication - Boric acid is not recommended as a preservative for urine. - The glucuronide metabolite of ?-hydroxyalprazolam cross-reacts with this assay - Other glucuronide metabolites, such as lorazepam, oxazepam, and temazepam cross-react to a limited extent Performed By: #### 7 [id number] #### [facility] [address] [place] [address] [facility]: Sajan Karimi MD Cocaine, U Negative [facility] Comment on above: Performed By: #### 7 [id number] #### [facility] [address] [place] [address] [facility]: Sajan Karimi MD Ecstasy, U Negative Normal [facility] Comment on above: Performed By: #### 7 [id number] #### [facility] [address] [place] [address] [facility]: Sajan Karimi MD Fentanyl, U Negative Normal [facility] Comment on above: Result Comment: Urin e for Fentanyl provides preliminary test results only. A more specific alternate method must be used in order to obtain a confirmed analytical result. Gas chromatography/mass spectrometry is the preferred confirmatory method. Clinical consideration and professional judgment should be applied to any drug of abuse test result, particularly when preliminary positive results are used. Results should not be used for non-medical purposes. Urine Fentanyl Minerva Level: 1 ng/ml Performed By: #### 7 [id number] #### [facility] [address] [place] [address] [facility]: Sajan Karimi MD Opiates, U Negative Normal [facility] Comment on above: Performed By: #### 7 [id number] #### [facility] [address] [place] [address] [facility]: Sajan Karimi MD PCP, U Negative Normal [facility] Comment on above: Performed By: #### 7 [id number] #### [facility] [address] [place] [address] [facility]: Sajan Karimi MD THC, U Negative Normal [facility] Comment on above: Performed By: #### 7 [id number] #### [facility] [address] [place] [address] [facility]: Sajan Karimi MD UAon 09-18-2024 Appearance, U Clear Normal Clear [facility] Comment on above: Performed By: #### 1 90163 #### [facility] [address] [place] [address] [facility]: Sajan Karimi MD Bilirubin, U Negative Normal Negative [facility] Comment on above: Result Comment: Bili graves, U: Initial positive urine bilirubin results are not confirmed. Interfering substances may include elevated urobilinogen. Trace = 0.5-1.0 mg/dL Small = 2.0-4.0 mg/dL Moderate = 6.0-8.0 mg/dL Large = 10 mg/dl and greater Performed By: #### 1 24620 #### [facility] [address] [place] [address] [facility]: Sajan Karimi MD Blood, U Negative Normal Negative [facility] Comment on above: Result Comment: Bloo d, U: Trace = 0.03-0.05 mg/dL Small = 0.06-0.1 mg/dL Moderate = 0.2-0.5 mg/dL Large = 1.0 mg/dL and greater Performed By: #### 1 83600 #### [facility] [address] [place], [place] [id number] [facility]: Sajan Karimi MD Color, U Light-Yellow Normal Yellow [facility] Comment on above: Performed By: #### 1 82861 #### [facility] [address] [place] [address] [facility]: Sajan Karimi MD Glucose Qual, U Negative Normal Negative [facility] Comment on above: Performed By: #### 1 40430 #### [facility] [address] [place] [address] [id number] [facility]: Sajan Karimi MD Ketones, U Negative Normal Negative [facility] Comment on above: Performed By: #### 1 34418 #### [facility] [address] [place] [address] [facility]: Sajan Karimi MD Leukocyte Esterase, U Negative Normal Negative [facility] Comment on above: Result Comment: Leuk ocyte Esterase, U: Trace = 25 Nathalie/uL Small = 75 Nathalie/uL Moderate = 250 Nathalie/uL Large = 500 Nathalie/uL and greater Performed By: #### 1 59212 #### [facility] [address] [place] [address] [facility]: Sajan Karimi MD Nitrite, U Negative Normal Negative [facility] Comment on above: Performed By: #### 1 97166 #### [facility] [address] [place], [place] [address] [facility]: Sajan Karimi MD pH, U 6.5 Normal 4.5-8.0 [facility] Comment on above: Performed By: #### 1 63499 #### [facility] [address] [place], [place] [address] [facility]: Sajan Karimi MD Protein, U Negative Normal Negative [facility] Comment on above: Performed By: #### 1 61532 #### [facility] [address] [place], [place] [address] [facility]: Sajan Karimi MD Specific Esparto, U 1.019 Normal 1.001-1.035 [facility] Comment on above: Performed By: #### 1 37563 #### [facility] [address] [place], [place] [address] [facility]: Sajan Karimi MD U MICRO Not Indicated Normal [facility] Comment on above: Performed By: #### 1 48601 #### [facility] [address] [place] [address] [facility]: Sajan Karimi MD Urobilinogen Qual, U < 2 mg/dl Normal < 2 mg/dl [facility] Comment on above: Result Comment: Urob ilinogen, U: EU/dl and mg/dl are equivalent units. Performed By: #### 1 80610 #### [facility] [address] [place] [address] [facility]: Sajan Karimi MD Hemoglobin A1con 07-18-2024 HbA1c (Bld) [Mass fraction] 5.7 % High 3.8-5.6 [facility] Comment on above: Order Comment: ERICK Yañez ADD A1C TO BLOOD DRAWN 07/15/24 PER Result Comment: Norm al < 5.7 % Prediabetic 5.7 - 6.4 % Diabetic >or= 6.5 % Please note range changes. Performed By: #### L [id number] #### [facility] [address] [place], [address] Hemoglobin A1c percentageOrd ered By: Sherie East on 07-18-2024 HbA1c (Bld) [Mass fraction] 5.7 % High 3.8-5.6 [facility] Comment on above: Normal < 5.7 % Predi abetic 5.7 - 6.4 % Diabetic >or= 6.5 % Please note range changes. Absolute lymphocyte countOrd ered By: Sherie East on 07-15-2024 Lymphocytes Auto (Unsp spec) [#/Vol] 1.32 10*3/uL 0.83-4.51 [facility] Absolute neutrophil countOrd ered By: Sherie East on 07-15-2024 Neutrophils (Bld) [#/Vol] 3.7 10*3/uL 2.0-7.7 [facility] Albumin to globulin ratioOrd ered By: Sherie East on 07-15-2024 Albumin/Globulin [Mass ratio] 1.0 {ratio} 0.9-2.4 [facility] Automated lymphocyte count a s percentage of total leukocytesOrdered By: Sherie East on 07-15-2024 Lymphocytes/100 WBC Auto (Unsp spec) 23.3 % 19-41 [facility] Basophil percentageOrdered B y: Sherie East on 07-15-2024 Basophils/100 WBC (Bld) 0.4 % 0-1 [facility] Bilirubin, totalOrdered By: Sherie East on 07-15-2024 Bilirubin [Mass/Vol] 0.50 mg/dL 0.20-1.00 [facility] Comment on above: For patients on eltr ombopag therapy, use of Dimension [place] TBIL is not recommended. Blood urea nitrogen (BUN)/cr eatinine ratioOrdered By: Sherie East on 07-15-2024 Urea nitrogen/Creatinine [Mass ratio] 27.9 mg/mg High 10-20 [facility] CBC W/Diff, Automatedon Absolute Lymph 1.32 X10 3/uL Normal 0.83-4.51 [facility] Comment on above: Order Comment: Order Date: 07/15/24 Order Info: 0184-1 - CBCD Performed By: #### L 500.4100, L501.9910, L500.4050, L100.0100 #### [facility] [address] [place], [address] Absolute Neut 3.7 X10 3/uL Normal 2.0-7.7 [facility] Comment on above: Order Comment: Order Date: 07/15/24 Order Info: 0184-1 - CBCD Performed By: #### L 500.4100, L501.9910, L500.4050, L100.0100 #### [facility] [address] [place], [address] Basophils/100 WBC (Bld) 0.4 % Normal 0-1 [facility] Comment on above: Order Comment: Order Date: 07/15/24 Order Info: 0184-1 - CBCD Performed By: #### L 500.4100, L501.9910, L500.4050, L100.0100 #### [facility] [address] [place], [address] Eosinophils/100 WBC (Bld) 1.1 % Normal 0-5 [facility] Comment on above: Order Comment: Order Date: 07/15/24 Order Info: 0184-1 - CBCD Performed By: #### L 500.4100, L501.9910, L500.4050, L100.0100 #### [facility] [address] [place], [address] Erythrocyte distribution width (RBC) [Ratio] 13.0 % Normal 11.6-14.6 [facility] Comment on above: Order Comment: Order Date: 07/15/24 Order Info: 0184-1 - CBCD Performed By: #### L 500.4100, L501.9910, L500.4050, L100.0100 #### [facility] [address] [place], [address] Hematocrit (Bld) [Volume fraction] 45.6 % Normal 40-54 [facility] Comment on above: Order Comment: Order Date: 07/15/24 Order Info: 0184-1 - CBCD Performed By: #### L 500.4100, L501.9910, L500.4050, L100.0100 #### [facility] [address] [place], [address] Hemoglobin (Bld) [Mass/Vol] 14.9 g/dL Normal 13.0-16.5 [facility] Comment on above: Order Comment: Order Date: 07/15/24 Order Info: 0184-1 - CBCD Performed By: #### L 500.4100, L501.9910, L500.4050, L100.0100 #### [facility] [address] [place], [address] IG% 0.400 Normal 0.0-0.9 [facility] Comment on above: Order Comment: Order Date: 07/15/24 Order Info: 0184-1 - CBCD Result Comment: IG% - Immature Granulocytes (promyelocytes, myelocytes and metamyelocytes) > 1% indicates that a LEFT SHIFT is Present. Performed By: #### L 500.4100, L501.9910, L500.4050, L100.0100 #### [facility] [address] [place], [address] Lymphocytes/100 WBC (Bld) 23.3 % Normal 19-41 [facility] Comment on above: Order Comment: Order Date: 07/15/24 Order Info: 0184-1 - CBCD Performed By: #### L 500.4100, L501.9910, L500.4050, L100.0100 #### [facility] [address] [place], [address] MCH (RBC) [Entitic mass] 28.2 pg Normal 27.0-32.0 [facility] Comment on above: Order Comment: Order Date: 07/15/24 Order Info: 0184-1 - CBCD Performed By: #### L 500.4100, L501.9910, L500.4050, L100.0100 #### [facility] [address] [place], [address] MCHC (RBC) [Mass/Vol] 32.7 g/dL Normal 32-36 [facility] Comment on above: Order Comment: Order Date: 07/15/24 Order Info: 0184-1 - CBCD Performed By: #### L 500.4100, L501.9910, L500.4050, L100.0100 #### [facility] [address] [place], [address] MCV (RBC) [Entitic vol] 86.4 fL Normal 80-94 [facility] Comment on above: Order Comment: Order Date: 07/15/24 Order Info: 0184-1 - CBCD Performed By: #### L 500.4100, L501.9910, L500.4050, L100.0100 #### [facility] [address] [place], [address] Monocytes/100 WBC (Bld) 10.1 % High 0-10 [facility] Comment on above: Order Comment: Order Date: 07/15/24 Order Info: 0184-1 - CBCD Performed By: #### L 500.4100, L501.9910, L500.4050, L100.0100 #### [facility] [address] [place], [address] Neutrophils/100 WBC (Bld) 64.7 % Normal 47-70 [facility] Comment on above: Order Comment: Order Date: 07/15/24 Order Info: 0184-1 - CBCD Performed By: #### L 500.4100, L501.9910, L500.4050, L100.0100 #### [facility] [address] [place], [address] Nucleated RBC (Bld) [#/Vol] 0 10*3/uL Normal 0-5 [facility] Comment on above: Order Comment: Order Date: 07/15/24 Order Info: 0184-1 - CBCD Performed By: #### L 500.4100, L501.9910, L500.4050, L100.0100 #### [facility] [address] [place], [address] Platelet mean volume (Bld) [Entitic vol] 9.7 fL Normal 6.2-12.0 [facility] Comment on above: Order Comment: Order Date: 07/15/24 Order Info: 0184-1 - CBCD Performed By: #### L 500.4100, L501.9910, L500.4050, L100.0100 #### [facility] [address] [place], [address] Platelets (Bld) [#/Vol] 248 10*3/uL Normal 150-450 [facility] Comment on above: Order Comment: Order Date: 07/15/24 Order Info: 0184-1 - CBCD Performed By: #### L 500.4100, L501.9910, L500.4050, L100.0100 #### [facility] [address] [place], [address] RBC (Bld) [#/Vol] 5.28 10*6/uL Normal 4.6-6.2 [facility] Comment on above: Order Comment: Order Date: 07/15/24 Order Info: 0184-1 - CBCD Performed By: #### L 500.4100, L501.9910, L500.4050, L100.0100 #### [facility] [address] [place], [address] RDW SD 40.3 fl Normal 35.1-43.9 [facility] Comment on above: Order Comment: Order Date: 07/15/24 Order Info: 0184-1 - CBCD Performed By: #### L 500.4100, L501.9910, L500.4050, L100.0100 #### [facility] [address] [place], [address] WBC (Bld) [#/Vol] 5.7 10*3/uL Normal 4.4-11.0 [facility] Comment on above: Order Comment: Order Date: 07/15/24 Order Info: 0184-1 - CBCD Performed By: #### L 500.4100, L501.9910, L500.4050, L100.0100 #### [facility] [address] [place], [address] Carbon dioxide measurementOr dered By: Sherie East on 07-15-2024 CO2 [Moles/Vol] 28.0 mmol/L 21.0-32.0 [facility] Chloride measurementOrdered By: Sherie East on 07-15-2024 Chloride [Moles/Vol] 103 mmol/L 98-107 [facility] Comprehensive Metabolic Prof ilon 07-15-2024 Albumin [Mass/Vol] 3.5 g/dL Normal 3.2-5.0 [facility] Comment on above: Order Comment: Order Date: 07/15/24 Order Info: [id number] - CMP Order Info: [id number] - LIPID Order Info: [id number] - PSA Performed By: #### L 500.4100, L501.9910, L500.4050, L100.0100 #### [facility] [address] [place], [address] Albumin/Globulin [Mass ratio] 1.0 {ratio} Normal 0.9-2.4 [facility] Comment on above: Order Comment: Order Date: 07/15/24 Order Info: 785- - CMP Order Info: [id number] - LIPID Order Info: [id number] - PSA Performed By: #### L 500.4100, L501.9910, L500.4050, L100.0100 #### [facility] [address] [place], [address] ALK P 63 U/L Normal 45-117 [facility] Comment on above: Order Comment: Order Date: 07/15/24 Order Info: [id number] - CMP Order Info: [id number] - LIPID Order Info: [id number] - PSA Performed By: #### L 500.4100, L501.9910, L500.4050, L100.0100 #### [facility] [address] [place], [address] ALT [Catalytic activity/Vol] 34 U/L Normal 16-61 [facility] Comment on above: Order Comment: Order Date: 07/15/24 Order Info: [id number] - CMP Order Info: [id number] - LIPID Order Info: [id number] - PSA Performed By: #### L 500.4100, L501.9910, L500.4050, L100.0100 #### [facility] [address] [place], [address] AST [Catalytic activity/Vol] 22 U/L Normal 15-37 [facility] Comment on above: Order Comment: Order Date: 07/15/24 Order Info: [id number] - CMP Order Info: [id number] - LIPID Order Info: [id number] - PSA Performed By: #### L 500.4100, L501.9910, L500.4050, L100.0100 #### [facility] [address] [place], [address] Bilirubin [Mass/Vol] 0.50 mg/dL Normal 0.20-1.00 [facility] Comment on above: Order Comment: Order Date: 07/15/24 Order Info: 785- - CMP Order Info: [id number] - LIPID Order Info: [id number] - PSA Result Comment: For patients on eltrombopag therapy, use of Dimension [place] TBIL is not recommended. Performed By: #### L 500.4100, L501.9910, L500.4050, L100.0100 #### [facility] [address] [place], [address] BUN/CRE 27.9 RATIO High 10-20 [facility] Comment on above: Order Comment: Order Date: 07/15/24 Order Info: [id number] - CMP Order Info: [id number] - LIPID Order Info: [id number] - PSA Performed By: #### L 500.4100, L501.9910, L500.4050, L100.0100 #### [facility] [address] [place], [address] CA,Total 8.6 mg/dL Normal 8.5-10.1 [facility] Comment on above: Order Comment: Order Date: 07/15/24 Order Info: 07- - CMP Order Info: [id number] - LIPID Order Info: [id number] - PSA Performed By: #### L 500.4100, L501.9910, L500.4050, L100.0100 #### [facility] [address] [place], [address] Chloride [Moles/Vol] 103 mmol/L Normal 98-107 [facility] Comment on above: Order Comment: Order Date: 07/15/24 Order Info: 0786- - CMP Order Info: [id number] - LIPID Order Info: [id number] - PSA Performed By: #### L 500.4100, L501.9910, L500.4050, L100.0100 #### [facility] [address] [place], [place], [address] CO2 [Moles/Vol] 28.0 mmol/L Normal 21.0-32.0 [facility] Comment on above: Order Comment: Order Date: 07/15/24 Order Info: 785- - CMP Order Info: - LIPID Order Info: [id number] - PSA Performed By: #### L 500.4100, L501.9910, L500.4050, L100.0100 #### [facility] [address] [place], [place], [address] Creatinine [Mass/Vol] 0.93 mg/dL Normal 0.70-1.30 [facility] Comment on above: Order Comment: Order Date: 07/15/24 Order Info: [id number] - CMP Order Info: - LIPID Order Info: [id number] - PSA Result Comment: The validity of the calculated GFR GFRAA in patients over 70 years has not been determined. Clinical correlation is essential. Performed By: #### L 500.4100, L501.9910, L500.4050, L100.0100 #### [facility] [address] [place], [place], [address] EST GFR - AA 110 mL/min Normal >60 [facility] Comment on above: Order Comment: Order Date: 07/15/24 Order Info: [id number] - CMP Order Info: - LIPID Order Info: [id number] - PSA Result Comment: Afri can [place] GFR Calc Performed By: #### L 500.4100, L501.9910, L500.4050, L100.0100 #### [facility] [address] [place], [address] GAP 6 Normal 5-15 [facility] Comment on above: Order Comment: Order Date: 07/15/24 Order Info: [id number] - CMP Order Info: - LIPID Order Info: [id number] - PSA Performed By: #### L 500.4100, L501.9910, L500.4050, L100.0100 #### [facility] [address] [place], [address] GFR/1.73 sq M.predicted among non-blacks MDRD (S/P/Bld) [Vol rate/Area] 91 mL/min/{1.73_m2} Normal >60 [facility] Comment on above: Order Comment: Order Date: 07/15/24 Order Info: [id number] - CMP Order Info: [id number] - LIPID Order Info: 285-1 - PSA Result Comment: Non- GFR Calc Performed By: #### L 500.4100, L501.9910, L500.4050, L100.0100 #### [facility] [address] [place], [address] Globulin (S) [Mass/Vol] 3.4 g/dL Normal 2.2-4.2 [facility] Comment on above: Order Comment: Order Date: 07/15/24 Order Info: 0786- - CMP Order Info: [id number] - LIPID Order Info: [id number] - PSA Performed By: #### L 500.4100, L501.9910, L500.4050, L100.0100 #### [facility] [address] [place], [address] Glucose [Mass/Vol] 106 mg/dL Normal 74-106 [facility] Comment on above: Order Comment: Order Date: 07/15/24 Order Info: [id number] - CMP Order Info: [id number] - LIPID Order Info: [id number] - PSA Result Comment: Fast ing Glucose result from 100 to 125 mg/dL suggests IMPAIRED HOMEOSTASIS per A.D.A. criteria. Performed By: #### L 500.4100, L501.9910, L500.4050, L100.0100 #### [facility] [address] [place], [address] Potassium [Moles/Vol] 4.1 mmol/L Normal 3.5-5.1 [facility] Comment on above: Order Comment: Order Date: 07/15/24 Order Info: 785-1 - CMP Order Info: [id number] - LIPID Order Info: [id number] - PSA Performed By: #### L 500.4100, L501.9910, L500.4050, L100.0100 #### [facility] [address] [place], [address] Sodium [Moles/Vol] 137 mmol/L Normal 136-145 [facility] Comment on above: Order Comment: Order Date: 07/15/24 Order Info: 785- - CMP Order Info: [id number] - LIPID Order Info: [id number] - PSA Performed By: #### L 500.4100, L501.9910, L500.4050, L100.0100 #### [facility] [address] [place], [address] T PROT 6.9 g/dL Normal 6.4-8.2 [facility] Comment on above: Order Comment: Order Date: 07/15/24 Order Info: [id number] - CMP Order Info: [id number] - LIPID Order Info: [id number] - PSA Performed By: #### L 500.4100, L501.9910, L500.4050, L100.0100 #### [facility] [address] [place], [address] Urea nitrogen [Mass/Vol] 26 mg/dL High 7-18 [facility] Comment on above: Order Comment: Order Date: 07/15/24 Order Info: [id number]- - CMP Order Info: [id number] - LIPID Order Info: [id number] - PSA Performed By: #### L 500.4100, L501.9910, L500.4050, L100.0100 #### [facility] [address] [place], [address] Eosinophil percentageOrdered By: Sherie East on 07-15-2024 Eosinophils/100 WBC (Bld) 1.1 % 0-5 [facility] Erythrocyte distribution wid th ratioOrdered By: Sherie East on 07-15-2024 Erythrocyte distribution width (RBC) [Ratio] 13.0 % 11.6-14.6 [facility] Erythrocyte distribution wid th standard deviationOrdered By: Sherie East on 07-15-2024 Erythrocyte distribution width (RBC) [Ratio] 40.3 fl 35.1-43.9 [facility] Glomerular filtration rate ( GFR) estimationOrdered By: Sherie East on 07-15-2024 GFR/1.73 sq M.predicted among non-blacks MDRD (S/P/Bld) [Vol rate/Area] 91 mL/min/{1.73_m2} >60 [facility] Comment on above: Non- GFR Calc Glucose measurementOrdered B y: Sherie East on 07-15-2024 Glucose [Mass/Vol] 106 mg/dL 74-106 [facility] Comment on above: Fasting Glucose resu lt from 100 to 125 mg/dL suggests IMPAIRED HOMEOSTASIS per A.D.A. criteria. Hematocrit Auto (Bld) [Volum e fraction]Ordered By: Sherie East on 07-15-2024 Hematocrit (Bld) [Volume fraction] 45.6 % 40-54 [facility] Hemoglobin measurementOrdere d By: Sherie East on 07-15-2024 Hemoglobin (Bld) [Mass/Vol] 14.9 g/dL 13.0-16.5 [facility] High density lipoprotein (HD L) measurementOrdered By: Sherie East on 07-15-2024 Cholesterol in HDL [Mass/Vol] 103 mg/dL >40 [facility] Comment on above: The drugs N-Acetylcy steine and Metamizole may falsely depress this assay. Reference Range HDL <40 mg/dL Low HDL Cholesterol HDL >or= 60 mg/dL High HDL Cholesterol Immature granulocytes/100 WB C Auto (Bld)Ordered By: Sherie East on 07-15-2024 Immature granulocytes/100 WBC (Bld) 0.400 % 0.0-0.9 [facility] Comment on above: IG% - Immature Granu locytes (promyelocytes, myelocytes and metamyelocytes) > 1% indicates that a LEFT SHIFT is Present. Laboratory - Chemistry and C hemistry - challengeOrdered By: Sherie East on 07-15-2024 AST [Catalytic activity/Vol] 22 U/L 15-37 [facility] Lipid Profileon 07-15-2024 Cholesterol [Mass/Vol] 261 mg/dL High 200 [facility] Comment on above: Order Comment: Order Date: 07/15/24Order Info: [id number] - CMPOrder Info: [id number] - LIPIDOrder Info: [id number] - PSA Result Comment: <200 mg/dL Desirable 200-240 mg/dL Borderline >240 mg/dL High Risk Performed By: #### L 500.4100, L501.9910, L500.4050, L100.0100 ####[facility] [address] [place], [address] Cholesterol in HDL [Mass/Vol] 103 mg/dL Normal [facility] Comment on above: Order Comment: Order Date: 07/15/24Order Info: [id number]- - CMPOrder Info: [id number] - LIPIDOrder Info: [id number] - PSA Result Comment: The drugs N-Acetylcysteine and Metamizole may falsely depress this assay. Reference Range HDL <40 mg/dL Low HDL Cholesterol HDL >or= 60 mg/dL High HDL Cholesterol Performed By: #### L 500.4100, L501.9910, L500.4050, L100.0100 ####[facility] [address] [place], [address] Cholesterol in LDL [Mass/Vol] 147 mg/dL High 0-130 [facility] Comment on above: Order Comment: Order Date: 07/15/24Order Info: [id number] - CMPOrder Info: [id number] - LIPIDOrder Info: [id number] - PSA Performed By: #### L 500.4100, L501.9910, L500.4050, L100.0100 ####[facility] [address] [place], [address] Cholesterol in VLDL [Mass/Vol] 11 mg/dL Normal 5-40 [facility] Comment on above: Order Comment: Order Date: 07/15/24Order Info: [id number] - CMPOrder Info: [id number] - LIPIDOrder Info: [id number] - PSA Performed By: #### L 500.4100, L501.9910, L500.4050, L100.0100 ####[facility] [address] [place], [place], [address] Triglyceride [Mass/Vol] 55 mg/dL Normal [facility] Comment on above: Order Comment: Order Date: 07/15/24Order Info: [id number] - CMPOrder Info: [id number] - LIPIDOrder Info: [id number] - PSA Result Comment: The drugs N-Acetylcysteine and Metamizole may falsely depress this assay. Serum Triglycerides Reference Interval Normal <150 mg/dL Borderline high 150 - 199 mg/dL High 200 - 499 mg/dL Very High > or = 500 mg/dL Performed By: #### L 500.4100, L501.9910, L500.4050, L100.0100 ####[facility] [address] [place], [place], [address] Low density lipoprotein (LDL ) cholesterol measurementOrdered By: Sherie East on 07-15-2024 Cholesterol in LDL [Mass/Vol] 147 mg/dL High 0-130 [facility] MCV (mean corpuscular volume ) determinationOrdered By: Sherie East on 07-15-2024 MCV (RBC) [Entitic vol] 86.4 fL 80-94 [facility] Mean corpuscular hemoglobin (MCH) determinationOrdered By: Sherie East on 07-15-2024 MCH (RBC) [Entitic mass] 28.2 pg 27.0-32.0 [facility] Mean corpuscular hemoglobin concentration (MCHC) determinationOrdered By: Sherie East on 07-15-2024 MCHC (RBC) [Mass/Vol] 32.7 g/dL 32-36 [facility] Mean platelet volume determi nationOrdered By: Sherie East on 07-15-2024 Platelet mean volume (Bld) [Entitic vol] 9.7 fL 6.2-12.0 [facility] Monocyte percentageOrdered B y: Sherie East on 07-15-2024 Monocytes/100 WBC (Bld) 10.1 % High 0-10 [facility] Neutrophil percentageOrdered By: Sherie East on 07-15-2024 Neutrophils/100 WBC (Bld) 64.7 % 47-70 [facility] Nucleated red blood cell per centageOrdered By: Sherie East on 07-15-2024 Nucleated RBC/100 WBC (Bld) [Ratio] 0 % 0-5 [facility] PSA,Total - Annual Screenon 07-15-2024 PSA,TOT SCREEN 0.64 ng/mL Normal 0.00-4.00 [facility] Comment on above: Order Comment: Order Date: 07/15/24Order Info: [id number] - CMPOrder Info: [id number] - LIPIDOrder Info: [id number] - PSA Result Comment: This test was performed using the TPSA assay method for the [employer] chemistry system. Values obtained with different assay methods cannot be used interchangably. When changing PSA assays in the course of monitoring a patient, additional sequential testing should be carried out to confirm baseline values. Performed By: #### L 500.4100, L501.9910, L500.4050, L100.0100 ####[facility] [address] [place], [address] Platelet countOrdered By: Joanie East on 07-15-2024 Platelets (Bld) [#/Vol] 248 10*3/uL 150-450 [facility] Potassium measurementOrdered By: Sherie East on 07-15-2024 Potassium [Moles/Vol] 4.1 mmol/L 3.5-5.1 [facility] RBC Auto (Bld) [#/Vol]Ordere d By: Sherie East on 07-15-2024 RBC (Bld) [#/Vol] 5.28 10*6/uL 4.6-6.2 [facility] Serum anion gap measurementO rdered By: Sherie East on 07-15-2024 Anion gap [Moles/Vol] 6 mmol/L 5-15 [facility] Serum globulin measurementOr dered By: Sherie East on 07-15-2024 Globulin (S) [Mass/Vol] 3.4 g/dL 2.2-4.2 [facility] Serum or plasma alanine dai otransferase (ALT) measurementOrdered By: Sherie East on 07-15-2024 ALT [Catalytic activity/Vol] 34 U/L 16-61 [facility] Serum or plasma albumin sonali urement (mass/volume)Ordered By: Sherie East on 07-15-2024 Albumin [Mass/Vol] 3.5 g/dL 3.2-5.0 [facility] Serum or plasma alkaline jean paul sphatase measurementOrdered By: Sherie East on 07-15-2024 ALP [Catalytic activity/Vol] 63 U/L 45-117 [facility] Serum or plasma calcium sonali urement (mass/volume)Ordered By: Sherie East on 07-15-2024 Calcium [Mass/Vol] 8.6 mg/dL 8.5-10.1 [facility] Serum or plasma cholesterol measurement (mass/volume)Ordered By: Sherie East on 07-15-2024 Cholesterol [Mass/Vol] 261 mg/dL High <200 [facility] Comment on above: <200 mg/dL Desirable 200-240 mg/dL Borderline >240 mg/dL High Risk Serum or plasma creatinine m easurement (mass/volume)Ordered By: Sherie East on 07-15-2024 Creatinine [Mass/Vol] 0.93 mg/dL 0.70-1.30 [facility] Comment on above: The validity of the calculated GFR & GFRAA in patients over 70 years has not been determined. Clinical correlation is essential. Serum or plasma urea nitroge n measurement (mass/volume)Ordered By: Sherie East on 07-15-2024 Urea nitrogen [Mass/Vol] 26 mg/dL High 7-18 [facility] Sodium levelOrdered By: Sherie East on 07-15-2024 Sodium [Moles/Vol] 137 mmol/L 136-145 [facility] Total proteinOrdered By: Desmond East on 07-15-2024 Protein [Mass/Vol] 6.9 g/dL 6.4-8.2 [facility] Triglycerides measurementOrd ered By: Sherie East on 07-15-2024 Triglyceride [Mass/Vol] 55 mg/dL <199 [facility] Comment on above: The drugs N-Acetylcy steine and Metamizole may falsely depress this assay.Serum Triglycerides Reference Interval Normal <150 mg/dL Borderline high 150 - 199 mg/dL High 200 - 499 mg/dL Very High > or = 500 mg/dL Very low density lipoprotein (VLDL) cholesterol measurementOrdered By: Sherie East on 07-15-2024 Very low density lipoprotein (VLDL) cholesterol measurement 11 mg/dL 5-40 [facility] White blood cell (WBC) count Ordered By: Sherie East on 07-15-2024 WBC (Bld) [#/Vol] 5.7 10*3/uL 4.4-11.0 [facility] Emergency Department Summary on 07-10-2024 Emergency Department Summary [facility] Medical Records Department [address] [place] [address] Emergency Department Summary 07/10/24 MR#: [id number] Acct: [id number] Name: MISSAEL BARRETT Rep #: [id number] : 1975 48 From: Malika Garcia DO PCP: Dr. Sherie East MD Status:DEP ER Location: ED HPI History of Present Illness Chief Complaint: Laceration Informant: patient Narrative Narrative: Patient is a 48-year-old male [id number] not on any blood thinners presenting with injury to his left hand. Patient states he pulled on a ribbon of steel which was very sharp and it sliced his right third and fourth fingers. He does have some tingling at the fourth finger. It was bleeding. He thinks he saw the bone on his fourth finger. Still able to move his fingers. No other injuries reported. Tetanus Immunization: Unknown [facility] Medical History Lipoma Occipital headache Scalp mass Home Medications ???Medication ???Instructions ???Recorded ???Last Taken ???Type cephalexin 500 mg capsule 500 mg PO Q8H 5 days #15 caps 08/02 Unknown Rx Allergy/AdvReac Type Severity Reaction Status Date / Time No Known Drug Allergies Allergy Unknown Other Verified 06/17/24 13:57 Family History Other Diabetes Heart disease Myocardial infarction Surgical History No history of previous surgery Social History household members: spouse Smoking Status: Never smoker alcohol intake: never substance use type: does not use ROS ROS ED Constitutional Constitutional ED: Denies chills or fever(s) Musculoskeletal Musculoskeletal: Reports other Details: right hand pain Integumentary Reports other Details: laceration to right 4th and 3rd fingers Hematologic/Lymphati c Hematologic/Lymphati c: Denies easy bleeding or easy bruising EXAM Physical Exam Const Vital Signs: 07/10/24 14:17 Temperature 97.5 F L Temperature Source Temporal Pulse Rate 70 Respiratory Rate 20 H Blood Pressure 116/74 Blood Pressure Mean 88 Pulse Ox 97 Oxygen Delivery Method Room Air Positive well nourished and well developed General Appearance ED: well developed and NAD HEENT Reports moist mucous membranes Neck supple Resp normal respiratory effort Cardio regular rate and regular rhythm Cardio Narrative: 2+ radial pulses Extremity Extremity Narrative: Right wrist. Full-thickness laceration over the palmar aspect of the third and fourth right fingers at the level of the DIP/middle phalanges. No obvious tendons exposure. Preserved extension and flexion of all of the digits. No bony deformity appreciated. Neuro oriented x3, moves all extremities and no focal motor deficits Sensorium / Orientation: alert Psych mental status grossly normal Skin Skin Narrative: Of the third right finger there is a full-thickness linear 1.5 cm laceration at the level of the middle phalanges. On the right fourth finger there is 2 cm full-thickness linear laceration at the level of the middle phalanges MDM MDM MDM Narrative Medical decision making narrative: Patient presents the emergency room with laceration to his right fourth and third fingers. X-ray does not show any acute foreign body or bony abnormalities. This reviewed by myself as well as radiology. Laceration repair performed by PA. Please see procedure note. Patient's does not appear to have any tendon involvement. Is given referral for hand/plastics for wound check and given return precautions. Patient will be placed on prophylactic dose of Keflex to help prevent any deep infection from the injury. Given return precautions discharged home in stable improved condition. Radiography Diagnostic Testing: Diagnostic Data Hand X-Ray 07/10/24 15:30 IMPRESSION: No acute osseous abnormalities are demonstrated. [facility] Procedures Lacerations right 3rd finger: Length: 0.59 in Depth: Sub Q Shape: Linear Prep: Sterile Conditions Laceration repair: Irrigated, Lidocaine, Local and Wound explored Irrigated (ml): 100 Number of Sutures/Ellerslie: 5 Suture Information: Ethilon and 4-0 right 4th finger: Length: 0.79 in Depth: Sub Q Shape: Linear Prep: Sterile Conditions Laceration repair: Irrigated, Lidocaine, Local and Wound explored Irrigated (ml): 100 Number of Sutures/Ellerslie: 6 Suture Information: Ethilon and 4-0 Comment: Right third finger has 1.5 cm linear laceration on the volar middle phalanx. Right fourth finger has 2 cm linear laceration at the v (more content not included)... Normal [facility] Hand Min 3 Viewson 5 Hand Min 3 Views [facility] Imaging Services [address] [place], [place] [address] Hand Min 3 Views MR#: [id number] Acct: [id number] Name: MISSAEL BARRETT Rep #: [id number] : 1975 M 48 From: Rayo Walter MD PCP: Dr. Sherie East MD Status: REG ER Study: Hand Min 3 Views Date of Exam: 07/10/24 Exam# [id number] Ordering Dr: Malika Garcia DO PROCEDURE: HAND MIN 3 VIEWS REASON FOR EXAM: Laceration. TECHNIQUE: 3 view(s) of the right hand COMPARISON: None. FINDINGS: No visible fracture. No suspicious bone lesion. Normal alignment. Soft tissues are unremarkable. Subchondral cystic lesions involving the distal 3rd and 5th metacarpals. RAD/Hand Min 3 Views IMPRESSION: No acute osseous abnormalities are demonstrated. Reading Location: [facility] CC: Dr. Malika Garcia, DO; Dr. Sherie East MD Student Life Dean: Signed Normal [facility] Head/Neck Soft Tissueon 06-09 Head/Neck Soft Tissue [facility] Imaging Services [address] [place] [address] Head/Neck Soft Tissue MR#: [id number] Acct: [id number] Name: MISSAEL BARRETT Rep #: [id number] : 1975 M 48 From: Dominik stone MD PCP: Dr. Sherie East MD Status: REG CLI Study: Head/Neck Soft Tissue Date of Exam: 07/04/24 Exam# [id number] Ordering Dr: Gino Thomas MD [id number] STUDY: SUPERFICIAL ULTRASOUND - LEFT OCCIPITAL REGION REASON FOR EXAM: Male, 48 years old. soft tissue left occipital scalp TECHNIQUE: A superficial ultrasound was performed with real-time and static odell-scale imaging. COMPARISON: None. FINDINGS: 18 grayscale and color images of the scalp overlying the left occipital region and left neck junction were acquired. A tubular appearing focus is seen in the deep scalp subcutaneous tissues measuring 9 x 7 mm. This is likely a scalp vessel or lymphatic channel. No definite flow is seen in this tubular opacity. No discrete mass or cyst or fluid collection is seen. This can be further assessed by physical exam or dermatologic assessment but there are no specifics radiographically gone the provided study. If greater detailed imaging is required a CTA or MRI contrast can be performed. US/Head/Neck Soft Tissue IMPRESSION: 1. A tubular appearing focus is seen in the deep scalp subcutaneous tissues measuring 9 x 7 mm. This is likely a scalp vessel or lymphatic channel. Electronically Signed: Dominik Irby MD at 14:32 EST Reading Location ID and State: [address] [place] [address] , Service support , CC: Dr. Sherie East MD; Dr. Gino Thomas MD Student Life Dean: Signed Normal [facility] Plastic Surgery Visit Report on 06-17-2024 Plastic Surgery Visit Report [facility] [address], [address] [place] [address] OFFICE VISIT Date of Service: 06/17/24 MR#: [id number] Acct: [id number] Name: MISSAEL BARRETT Rep #: [id number] : 1975 Provider: Dr. Gino Thomas MD Age/Sex: 48/M Location: [facility] Status: Signed with Addenda ADDENDUM by Dr. Gino Thomas MD on 06/17/24 at 1654 Assessment and Plan (No Qualifiers) Assessment and Plan (1) Mass: Status: Acute Comment: Posterior neck (2) Scalp mass: Status: Chronic Comment: 2 cm soft tissue mass left occipital scalp Plan . 06/17/24 1654 Date Gino Thomas MD cc: * Signed Intake Vital Signs 3 05/12/24 12:27 06/17/24 14:09 Height 5 ft 8 in 5 ft 8 in Weight: 170 lb 2 oz 170 lb BMI 25.8 25.8 BP 105/68 Blood Pressure Location Rt brachial Position Sitting Respiration 18 Pulse 67 Temp 98.1 F Temp Source Oral Pulse Oximetry (%) 97 Oxygen Delivery Method room air Intake Visit Reasons: LIPOMA OF BACK Chief Complaint: lipoma of back Allergies No Known Drug Allergies Allergy (Unknown, Verified 06/17/24 13:57) Other Medications 3 ???Medication ???Instructions ???Recorded ???Confirmed ???Type NK 07/17/22 06/17/24 History PFSH Medical History Lipoma Occipital headache Scalp mass Surgical History No history of previous surgery Family History Other Diabetes Heart disease Myocardial infarction Social History household members: spouse Smoking Status: Never smoker alcohol intake: never substance use type: does not use HPI LIPOMA OF BACK Details: Missael Barrett is a delightful 48-year-old male with past medical history of headaches who was referred to plastic surgery by orthopedic surgery for neck lipoma after he was being evaluated by their spine surgery team for possible neck pathology leading to the headaches. He reports that their x-rays were negative for any acute pathology. He reports that the masses (2 lipomas 1 on the left posterior scalp and 1 on the posterior lower neck in the midline) have been there for several years and were not present at but it been slowly growing over the years. He is not a smoker ROS General General: Yes good health; No fatigue, fever(s) or weight loss HENMT HENMT: No rhinitis, sore throat/mouth sore, nasal congestion, contacts or glaucoma Endo Endocrine: No thyroid disease, polydipsia, heat intolerance, cold intolerance, hepatitis or excessive urine Skin Skin: No Bleeding, bruising, changing moles or suspicious lesion Musc Musculoskeletal: No joint pain, joint stiffness, muscle weakness, back pain, osteoarthritis or Muscle aches/ myalgia Neuro Neurological: Yes headache(s), No lightheadedness and No numbness Cardio Cardiovascular: No chest pain, pacemaker, fatigue or shortness of breat with exertion Psych Psychiatric: No depression, claustrophobia or anxiety Resp Respiratory: No spitting up, shortness of breath, sleep apnea, asthma, emphysema, TB, Cough or Smoker Gastro Gastrointestinal: No diarrhea, constipation, blood in stool, nausea, vomiting or abdominal bloating Zaki Hematologic: No anemia, No bleeding and No abnormal bleeding Genitourinary: No urinary frequency, blood in urine or incontinence Exam Details Left posterior occipital subcutaneous mass, approximately 2 x 2 cm, likely under the galea. Mobile Posterior occipital bossing, patient reports present since childhood Posterior neck soft tissue mass approximately 4 x 4 cm over the lower C-spine midline. Mobile, nontender to palpation. No neck lymphadenopathy Coding Level of Care Code Off vis,new,level 3 Diagnoses Mass Scalp mass R22.0 Assessment and Plan (No Qualifiers) Assessment and Plan (1) Mass: Status: Acute Comment: Posterior neck (2) Scalp mass: Status: Chronic Comment: 2 cm soft tissue mass left occipital scalp Plan Given that the mass is in the midline, I am obtaining ultrasound imaging. I will also get ultrasound of the left posterior scalp mass. Follow-up to discuss ultrasound result. I talked the patient extensively about his pain, especially his headache pain and possible neck pain. I told him that resection of these masses is unlikely to improve his pain and could actually worsen his pain. He understands this. 06/17/24 1654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
--- NOTE | 2025-04-14 07:44 | HP.PCM_ITS ---
HPI - General HPI Narrative RUBY OTTO, is a 49 M who presents for left occipital mass excision. Denies changes in his medical health, fever, chills, URI, dental infection. Denies changes to the lesion. HPI from 11/11/24: Ruby Otto is a delightful 48-year-old male with past medical history of headaches who was referred to plastic surgery by orthopedic surgery for neck lipoma after he was being evaluated by their spine surgery team for possible neck pathology leading to the headaches. He reports that their x-rays were negative for any acute pathology. He reports that the masses (2 lipomas 1 on the left posterior scalp and 1 on the posterior lower neck in the midline) have been there for several years and were not present at but it been slowly growing over the years. He is not a smoker 28 Oct 2024: Patient got ultrasound but there was no read on the cervical spine mass. I discussed this with radiology and they will repeat the ultrasound for the scalp and for the cervical spine. Discussed with the patient 11 November 2024: Here in clinic to review ultrasound. Left posterior scalp mass consistent with a lymph node, while the posterior cervical spine ultrasound revealed fatty tissue that was not well-circumscribed. [facility] Medical History High cholesterol Injury of head and neck Non-smoker Lipoma Occipital headache Scalp mass Home Medications Medication Instructions Recorded Last Taken Type NK 04/06/25 Unknown History Allergy/AdvReac Type Severity Reaction Status Date / Time No Known Drug Allergies Allergy Unknown Other Verified 04/14/25 08:04 Family History Other Diabetes Heart disease Myocardial infarction Surgical History No history of previous surgery Social History household members: spouse Smoking Status: Never smoker alcohol intake: never substance use type: does not use ROS ROS Narrative General: Denies fever, chills HEENT: Denies headaches, vision changes, sore throat Cardio: Denies chest pain, leg edema Pulmonary: Denies shortness of pain, cough, wheezing GI: Denies nausea, vomiting, diarrhea Physical Exam Narrative Left posterior occipital subcutaneous mass, approximately 2 x 2 cm, likely under the galea. Mobile, nontender to palpation. No erythema, edema or induration. Posterior occipital bossing, patient reports present since childhood Posterior neck soft tissue prominence approximately 4 x 4 cm over the lower C- spine midline over a projecting spinous process. Mobile, nontender to palpation. No neck lymphadenopathy Assessment & Plan Assessment/Plan (1) Scalp mass: PLAN: Plan Left occipital mass excision. Same day discharge No intervention for cervical prominence. Ancef for periop prophylaxis.
[2025-04-14 08:08] VITALS: BP 115/72; PULSE 78; RESP 17; TEMP 36.4; O2SAT 100; BMI 27.0
[2025-04-14] MEDS: Lactated Ringers 1,000 ML 15 ML IV (08:11)
--- NOTE | 2025-04-14 08:39 | PCM.PRE.AN2 ---
ASA Classification* ASA Classification ASA Classification: 2 Assessment & Plan Anesthesia* Anesthesia Assessment Anesthesia Assessment: Discussed sedation and/or anesthesia options, risks, benefits, and alternatives with patient/parents/legal guardian/POA. Questions invited. The patient/parents/legal guardian/POA seems to understand and agrees to proceed with anesthesia plan. Reviewed the physical assessment, medical history, allergy history and patient home medications list prior to surgery/procedure/anesthetic and documented any changes. Performed airway and anesthesia risk assessments. Anesthesia Type Anesthesia Type: MAC History Source History Obtained from:: Patient and Chart Anesthesia Focused Assessment* Temperature: 97.6 F Pulse Rate: 78 Blood Pressure: 115/72 Respiratory Rate: 17 Pulse Ox: 100 Oxygen Delivery Method: Room Air Airway Assessment Mouth opens: >3 cm Mallampati Score: III Teeth Condition: Intact Neck Range of motion (ROM): Limited ROM (Slight Decrease) Labs Anesthesia Preop lab: CBC WBC, (4.4-11.0) 5.7 K/mm3 07/15/24, 08:45 RBC, (4.6-6.2) 5.28 M/mm3 07/15/24, 08:45 Hgb, (13.0-16.5) 14.9 g/dL 07/15/24, 08:45 Hct, (40-54) 45.6 % 07/15/24, 08:45 Plt Count, (150-450) 248 K/mm3 07/15/24, 08:45 CHEMISTRY Potassium, (3.5-5.1) 4.1 mmol/L 07/15/24, 08:45 Sodium, (136-145) 137 mmol/L 07/15/24, 08:45 BUN, (7-18) 26 mg/dL H 07/15/24, 08:45 Creatinine, (0.70-1.30) 0.93 mg/dL 07/15/24, 08:45 Glucose, (74-106) 106 mg/dL 07/15/24, 08:45 TSH, (0.358-3.74) 2.04 uIU/mL 07/17/20, 09:02 COAG Pre-Assessment Diagnosis/Proposed Procedure Planned Operative Procedure(s): EXCISON LEFT POSTERIOR SCALP MASS Anesthesia History 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 When Was Last Pacemaker Check QUESTION #4 FULL TEXT: You/Your Family Experience fever (hyperthermia) with Anesthesia Last Oral Intake Last Oral intake: Last Oral Intake NPO since 00:00 04/14/25 08:08 Meds taken in AM with sips of No 04/14/25 08:08 water? Meds patient instructed to take am of surgery PONV PONV - food products tester: PONV - food products tester Female No 04/06/25 08:50 HX of Motion Sickness No 04/06/25 08:50 HX of N/V After Surgery No 04/06/25 08:50 Non-Smoker Yes 04/06/25 08:50 Duration of Surgery greater Yes 04/06/25 08:50 than 60 minutes Number of Risk Factors 2 04/06/25 08:50 PONV Score Moderate Risk 04/06/25 08:50 Height & Weight Height & Weight: Anesthesia: Height & Weight Height 5 ft 8 in 04/14/25 08:08 Weight: 80.7 kg 04/14/25 08:08 Body Mass Index (BMI) 27.0 04/14/25 08:08 Respiratory Assessment Respiratory Assessment - food products tester: Respiratory Tract Infection Hx - food products tester Hx Respiratory Tract Infection No 04/06/25 08:50 STOP Sleep Apnea STOP Sleep Apnea - food products tester: STOP Sleep Apnea - food products tester Hx Hypertension No 04/06/25 08:50 Hx Sleep Apnea No 04/06/25 08:50 CPAP BIPAP Do you snore loudly (louder No 04/06/25 08:50 than talking or can be heard Do you often feel tired/ No 04/06/25 08:50 fatigued/ sleepy during daytime? Has anyone observed you stop No 04/06/25 08:50 breathing during sleep? STOP Results Negative 04/06/25 08:50 QUESTION #5 FULL TEXT : Do you snore loudly (louder than talking or can be heard through closed doors)? Tobacco Use History Tobacco Use History - food products tester: Tobacco Use History - food products tester Tobacco Use Smoking Status Never smoker 04/06/25 08:50 Hx Tobacco Use No 04/06/25 08:50 Years Smoking Packs Smoked per Day Smoking Cessation Date was within the last 15 years Hx Smoking Cessation Date Hx Smoking Cessation Counseling Hematologic Medial History Hematologic Hx - food products tester: Hematologic Medical Hx - copy lathe tender Hx of Blood Transfusion No 04/06/25 08:50 Hx of Transfusion in last 3 No 04/06/25 08:50 Months Date of Last Transfusion (if within last 3 months) Ever experience any problems No 04/06/25 08:50 with transfusion(s)? Specify any problems Hx of Preganancy in last 3 N/A 04/06/25 08:50 Months Nurse Filling Out Transfusion [email or web address] 04/06/25 08:50 & Questions: Date: 04/06/25 04/06/25 08:50 Time: 08:52 04/06/25 08:50 Patient unable to answer at this time (ie. confused, unrespo /Reproduction History /Reproductive History - food products tester: /Reproductive Hx- food products tester Hx Now Gestational Age (in weeks): EDC: Hx Hx Para Hx Section SAB No 04/06/25 08:50 Does the father of the baby or his family experience fever w Father of the baby Malignant Hypertension history comment Active Medications Active Medications: Current Medications Generic Name Dose Route Start Last Admin Trade Name Freq PRN Reason Stop Dose Admin Lactated Ringer's 1,000 mls @ 15 mls/hr 04/14/25 07:45 04/14/25 08:11 IV 15 mls/hr .Q48H ANUSHA Administration PFSH Medical History High cholesterol Injury of head and neck Non-smoker Lipoma Occipital headache Scalp mass Home Medications Medication Instructions Recorded Last Taken Type NK 04/06/25 Unknown History Allergy/AdvReac Type Severity Reaction Status Date / Time No Known Drug Allergies Allergy Unknown Other Verified 04/14/25 08:04 Family History Other Diabetes Heart disease Myocardial infarction Surgical History No history of previous surgery no surgical history Social History household members: spouse Smoking Status: Never smoker alcohol intake: never substance use type: does not use Review of Systems (Anesthesia) ROS Narrative System reviewed and no additional complaints, except as documented.
[2025-04-14 08:43] VITALS: BP 115/72; PULSE 78; RESP 17; TEMP 36.4; O2SAT 100
--- NOTE | 2025-04-14 09:00 | VE_PTH ---
PATIENT: RUBY OTTO LOC: [facility] – [place], [place] U#:[id number] AGE/SX: 49/M ROOM: RE04/14/[address]: Dr. Gino Thomas MD : 1975 BED: DIS: 04/14/2025 SPEC #: [id number] RECD: 04/14/25 10:49 STATUS: LORNA REMaged #: [id number] DAVE: 04/14/25 09:[address]: Gino Thomas DEPT: SURGICAL PATHOLOGY RECD BY: Harjinder Peres ENTERED: 04/14/25 11:49 SP TYPE: VEIN(S) OT DR: Dr. Moises Ramos MD Tissues: A - Vein, NOS Procedures: Surgery Specimen Level IV HEADER OPERATION: Excision of left posterior scalp mass PRE-OP DIAGNOSIS: Excision of left posterior scalp mass TISSUE SUBMITTED: A- Vessel malformation MICROSCOPIC DIAGNOSIS A. Left posterior scalp, "mass/vessel malformation", excision: - Muscular blood vessel. - No neoplasia seen. MICROSCOPIC DESCRIPTION Slides are reviewed. GROSS DESCRIPTION A. Received in formalin labeled with the patient's name and date of . Designated as " vessel malformation" is a pink-red, slightly torturous apparent vessel, 0.9 cm in length by 0.2 cm in diameter. The specimen is bisected and entirely submitted in 1 cassette. OR 04/14/2025 CPT:63211
[2025-04-14] MEDS: Midazolam 2 MG/2 ML Syringe IV (09:23)
[2025-04-14] MEDS: Lactated Ringers 1,000 ML 1000 ML IV (09:23)
[2025-04-14] MEDS: Cefazolin 1 GM/5 ML Vial 2 GM IV (09:25)
[2025-04-14] MEDS: fentaNYL 100 MCG/2 ML Ampul IV (09:30)
[2025-04-14] MEDS: Lidocaine 1% (5 ml sdv) 5 ML Vial IV (09:30)
[2025-04-14] MEDS: Bacitracin 500 UNITS/GM PACKET (10:10)
[2025-04-14] MEDS: Lidocaine 1% /Epi 1:100 (50ml) 50 ML VIAL (10:25)
[2025-04-14] MEDS: Bupiv/Epi 0.25% 30 ML Vial (10:25)
[2025-04-14 10:40] VITALS: BP 115/72; BP 123/72; PULSE 67; RESP 18; TEMP 36.3; O2SAT 99
--- NOTE | 2025-04-14 10:42 | OP.PCM_ITS ---
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 Senior J2Ee Developer: Bre Black Tasks completed by workers compensation claims assistant: Retracting Type of Anesthesia: Local MAC (10 cc of 50-50 mixture 1% lidocaine with 1 200,000 epinephrine and quarter percent Marcaine with 1-200,000 epinephrine) RN Documented Start/Stop Times: Operation Date: 04/14/25 09:00 Case Time Into Pre-Op 04/14/25 07:38 Out of Pre-Op 04/14/25 09:15 Anesthesia Start 04/14/25 09:23 Into Room 04/14/25 09:23 Procedure Start 04/14/25 09:48 Procedure End 04/14/25 10:24 Anesthesia End 04/14/25 10:31 Out of Room 04/14/25 10:31 Into Recovery 04/14/25 10:40 Procedure Start Time: 09:48 Procedure Stop Time: 10:24 Select all DRAINS/GRAFTS/IMPLANTS that apply: None Estimated Blood Loss: 5 cc Specimen collected: Yes Description of specimen(s) removed: Central segment of the vascular malformation Description of surgery: Indications: Patient is a 49-year-old male with a palpable prominence of soft tissue on the left posterior occipital scalp. Ultrasound demonstrated possible lymph node, but an unusual location for lymph node. He presents today for excision as he would like to know what the lump is and is concerned about it. I talked him about the risks, benefits, and alternatives of excision, and he elected to proceed. Procedure details: Patient was correctly identified in preoperative holding and the palpable mass was marked with the patient and he confirmed the area. He was taken back to the operating room and administered sedation and 10 cc of the above-noted local solution. He was prepped and draped in sterile fashion. Timeout was performed. Longitudinal direct incision was made over the area of soft tissue prominence that was marked. Dissection was carefully taken down with tenotomy scissors through the scalp tissue and in the level of the fascia we encountered a large vascular malformation, with multiple tortuous loops of vessel with a dilated center. Dissection was carried out proximally and distally. The proximal and distal aspects of the malformation were ligated with vascular clips. An adjacent vessel was also ligated. Care was taken to protect and preserve any cutaneous nerves. There was no defect in the skull. We examined the rest of the wound bed and there was no identifiable mass other than the tortuous vessel that was excised and sent to pathology (no lymph node and no lipoma). The periosteum was at the base of the dissection (areal thoroughly explored). The wound was irrigated. Tisseel was placed at the base of the wound for improved hemostasis and to destroy the space that had been left by removal of the malformation. 2-0 PDS deep suture followed by cali were placed for closure. Bacitracin was applied. Patient tolerated the procedure well. Postoperative plan: Follow-up in 1 week to review pathology and for wound check. Follow-up in 2 weeks for staple removal. Patient informed of the operative findings and happy with the plan. Surgical Findings: * Tortuous vessel malformation, with dilated central vasculature in the area of palpable concern * No surrounding lymph nodes in the tissue bed, no surrounding lipomas in the tissue bed Complications Complications: No
--- NOTE | 2025-04-14 10:44 | PCM.POST.ANE ---
Anesthesia: Postop Eval I Current Vital Signs Temperature: 97.3 F Pulse Rate: 67 Blood Pressure: 123/72 Respiratory Rate: 20 Pulse Ox: 99 Oxygen Delivery Method: Room Air Assessment Airway patent: Yes Spontaneous unlabored respirations: Yes Mental status: Awake and Calm nausea: No Vomiting: No Anesthesia Complication: No Fluid Hydration Crystalloid volume administer (ml): 800 Total IV fluid infused: 800 Progress Note Anesthesia document: Postop Eval 1 completed: Yes
[2025-04-14 10:45] VITALS: BP 112/72; BP 115/72; BP 123/72; PULSE 60; PULSE 67; RESP 18; RESP 20; TEMP 36.3; O2SAT 100; O2SAT 99
[2025-04-14 10:50] VITALS: BP 109/65; BP 115/72; PULSE 63; RESP 18; TEMP 36.6; O2SAT 100
[2025-04-14 11:25] VITALS: BP 115/72
--- NOTE | 2025-04-15 11:57 | POSTOPAN2_ITS ---
Anesthesia Postop Eval I Sum Postop Eval Completion status Anesthesia document: Postop Eval 1 completed: Yes Anesthesia Postop Eval I Summary Anesthesia Postop Eval I Summary: Anesthesia Postop Eval I: Assessment Summary Airway patent Yes 04/14/25 10:45 ROLL UP [email or web address] Spontaneous unlabored Yes 04/14/25 10:45 ROLL UP OPERATOR.[email or web address] respirations Mental status Awake,Calm 04/14/25 10:45 ROLL UP [email or web address].[email or web address] nausea No 04/14/25 10:45 ROLL UP OPERATOR.[email or web address] Vomiting No 04/14/25 10:45 ROLL UP [email or web address].[email or web address] Anesthesia Postop Eval I: Fluid Summary Crystalloid volume administer 800 04/14/25 10:45 ROLL UP [email or web address].[email or web address] (ml) Colloids volume administered ( ml) Blood Product volume administered (ml) Total IV fluid infused 800 04/14/25 10:45 ROLL UP [email or web address].[email or web address] Anesthesia Postop Eval I: Summary Notes Anesthesia Complication No 04/14/25 10:45 ROLL UP [email or web address] Anesthesia Complication Comment: Post-operative progress note Anesthesia: Postop Eval II Evaluation Mental status: Awake and Calm Pain Level: 1 nausea: No Vomiting: No Complications Anesthesia Complication: No
--- NOTE | 2025-04-15 11:57 | PCM.POSTANE2 ---
Anesthesia Postop Eval I Sum Postop Eval Completion status Anesthesia document: Postop Eval 1 completed: Yes Anesthesia Postop Eval I Summary Anesthesia Postop Eval I Summary: Anesthesia Postop Eval I: Assessment Summary Airway patent Yes 04/14/25 10:45 OXYGEN EQUIPMENT [email or web address] Spontaneous unlabored Yes 04/14/25 10:45 OXYGEN EQUIPMENT AIDE.[email or web address] respirations Mental status Awake,Calm 04/14/25 10:45 OXYGEN EQUIPMENT AIDE.[email or web address] nausea No 04/14/25 10:45 OXYGEN EQUIPMENT AIDE.[email or web address] Vomiting No 04/14/25 10:45 OXYGEN EQUIPMENT AIDE.[email or web address] Anesthesia Postop Eval I: Fluid Summary Crystalloid volume administer 800 04/14/25 10:45 OXYGEN EQUIPMENT AIDE.[email or web address] (ml) Colloids volume administered ( ml) Blood Product volume administered (ml) Total IV fluid infused 800 04/14/25 10:45 OXYGEN EQUIPMENT AIDE.[email or web address] Anesthesia Postop Eval I: Summary Notes Anesthesia Complication No 04/14/25 10:45 OXYGEN EQUIPMENT AIDE.[email or web address] Anesthesia Complication Comment: Post-operative progress note Anesthesia: Postop Eval II Evaluation Mental status: Awake and Calm Pain Level: 1 nausea: No Vomiting: No Complications Anesthesia Complication: No
== END 2025-04-14 11:30 | disposition home or self-care (01) ==
LOC: SDC 07:29 → AC 07:30
PROVIDERS: PCP Family Medicine; Referring Provider Surgery Plastic and Reconstructive Surgery; Visit Provider Surgery Plastic and Reconstructive Surgery
DX: Q28.3 Other malformations of cerebral vessels (principal); E78.00 Pure hypercholesterolemia, unspecified
CPT/HCPCS: 37799; 00300; 88304; 88305; A4648; J2405